=== PATIENT | male | born 1940 | race Caucasian/White ===

== ENCOUNTER 2020-05-30 23:44 | Emergency (ER) | payer MEDICARE, SELFPAY ==
[2020-05-30 23:49] VITALS: BP 125/64; PULSE 94; RESP 18; TEMP 36.6; O2SAT 97; BMI 21.9
--- NOTE | 2020-05-31 00:01 | ED_ITS ---
HPI - Altered Mental Status General Chief Complaint: Altered Mental Status Stated Complaint: dementia Time Seen by Provider: 05/31/20 00:01 Source: patient Mode of arrival: ambulatory Limitations: no limitations History of Present Illness HPI narrative: 79-year-old male came in from dementia unit for agitation evaluation. This is a 79-year-old male with history of dementia patient was discharged from [facility] today to a dementia unit at [facility], when patient arrived to the custodial patient refused to change his clothes and he was walking naked in agitated staff could not control him send him back to the emergency department. Given the fact patient was just discharged from [facility] for similar presentation will not work the patient up to rule out medical underlying etiolo gy. Will patient in the emergency department has been quite with no agitation and redirectable following simple commands. Of note patient is DNR/DNI. Review of Systems Review of Systems: All other systems are reviewed and are negative Constitutional: Reports as per HPI and Reports no additional constitutional complaints Eyes: Reports as per HPI and Reports no additional eye complaints Reports system reviewed and no additional complaints, except as documented Cardiovascular: Reports as per HPI and Reports no additional cardiovascular complaints Respiratory: Reports as per HPI and Reports no additional respiratory complaints Gastrointestinal: Reports as per HPI and Reports no additional gastrointestinal complaints Genitourinary: Reports no additional female genitourinary complaints Musculoskeletal: Reports no additional musculoskeletal complaints Skin/Breast: Reports system reviewed and no additional complaints, except as docu Psychiatric: Reports no additional psychiatric complaints Endocrine: Reports no additional endocrine complaints Hematologic/Lymphatic: Reports no additional hematologic/lymphatic complaints Allergic/Immunologic: Reports no additional allergic/immunologic complaints Reports system reviewed and no additional complaints, except as documented and Reports Abnormal speech present Physical Exam Vital Signs: Vital Signs: Last Vital Signs Temp 97.9 F 05/30/20 23:49 Pulse 94 05/30/20 23:49 Resp 18 05/30/20 23:49 BP 125/64 05/30/20 23:49 Pulse Ox 97 05/30/20 23:49 Body Mass Index 21.9 Vital signs have been reviewed as appeared to be correct. Blood pressure normal. Heart rate normal. Respiration rate normal. Temperature normal. Oxygen saturation normal. Appearance: Alert. No acute distress. Able to follow simple commands. Head: Normal external exam. Normocephalic. Atraumatic. No Swartz signs noted. No raccoon eyes noted Eyes: PERRLA. EOMI. Conjunctiva and sclera normal. Eyelids normal. ENT: TM's Normal. Pharynx normal. Uvula midline. Moist mucous membranes. No trismus noted. No drooling noted. No muffled voice noted. Neck: Normal inspection. Neck supple. FROM. No adenopathy. Thyroid Normal. No meningeal signs. No neck mass noted. CVS: Normal heart rate and rhythm. Heart sound normal. No murmurs noted. Pulses normal throughout. Respiratory: No respiratory distress. Painless inspiration. Breath sounds normal. No wheezes/rales/rhonchi noted. Chest nontender. No accessory muscle usage noted or decreased air movement noted. Abdomen: Soft and nontender. Bowel sounds normal in all 4 quadrants. No distention noted. No organomegaly noted. No visible injury noted. Back: No CVA tenderness. Full range of motion noted. Skin: Skin warm and dry. Normal skin color. Normal skin turgor. No rashes/lesions/lacerations noted. Extremities: No lower extremity edema. Extremities exhibit normal range of motion. Extremities nontender. Neuro: No motor deficit. No sensory deficit. Reflexes normal. Course Course Course Narrative: Assessment and plan. 79-year-old male came in after being agitated and walking naked at the dementia unit in the custodial. Patient emergency department showing no sign of acute distress, stable vital signs, physical exam not indicated for acute medical underlying cause. Patient was just discharged from [facility] assuming no acute medical condition was found. Reevaluation(s) Reevaluation #1: Patient is in bed quite no active agitation, follow commands, unchanged physical exam with stable vital signs will arrange for transportation back to the dementia unit. Time: 00:46 Discharge Plan Discharge Clinical Impression: Dementia Patient Disposition: er SNF Instructions: Dementia (ED) Additional Instructions: To follow-up with his primary doctor.
--- NOTE | 2020-05-31 00:34 | PC.NURSE ---
PT RESTING ON STRETCHER AT THIS TIME, HAS NOT ATTEMPTED TO GET OOB, HAS NOT DISPLAYED ANY AGITATION. REMAINS A/O X 1 (BASELINE)
== END 2020-05-31 02:00 | disposition skilled nursing facility (03) ==
PROVIDERS: Emergency Provider Emergency Medicine; PCP Family Medicine Geriatric Medicine
DX: F03.91 Unspecified dementia, unspecified severity, with behavioral disturbance (principal); Z66 Do not resuscitate
CPT/HCPCS: 99283

== ENCOUNTER 2021-04-06 16:19 | Emergency (ER) | payer MEDICARE, SELFPAY ==
[2021-04-06] VITALS (15 sets, daily range): BP systolic 123–150; BP diastolic 60–84; PULSE 76–100; RESP 15–21; TEMP 36.8–37.2; O2SAT 96–98; BMI 24.3
--- NOTE | ~2021-04-06 | CT_ITS ---
EXAMINATION: CT HEAD WITHOUT CONTRAST CLINICAL INFORMATION: Mental status change COMPARISON: None TECHNIQUE: Contiguous axial imaging was performed from the skull base to vertex without intravenous administration of contrast. Coronal and sagittal reformatted images are performed at CT scanner This CT examination was performed using dose optimization techniques as appropriate, variously including the following: *Automated exposure control *Adjustment of mA and/or kV according to patient size (this includes techniques or standardized protocols for targeted exams where dose is matched to indication/reason for exam; i.e. extremities or head) *Use of iterative reconstruction technique DLP: 745 mGy-cm FINDINGS: There is no evidence of acute intracranial hemorrhage or territorial infarction. No abnormal mass effect or midline shift is seen. [place]ore[place] to white matter differentiation is well preserved. No extra-axial fluid collections are identified. There is generalized global volume loss. There is moderate prominence of the ventricles and the sulci . There is mild hypodensity of the periventricular white matter due to chronic small vessel ischemic disease. There are vascular calcifications of the internal carotid arteries bilaterally. The osseous structures and soft tissues are normal. The mastoid air cells and visualized portions of the paranasal sinuses are well aerated. CT/CT head/brain wo con IMPRESSION: No acute intracranial pathology.
--- NOTE | ~2021-04-06 | CT_ITS ---
EXAMINATION: CT CHEST WITHOUT CONTRAST CLINICAL INFORMATION: Chest radiograph earlier today COMPARISON: Chest radiograph earlier today TECHNIQUE: Multidetector volumetric CT imaging of the chest was done. Axial MIP volume rendering provided. Sagittal and coronal reformatted images were obtained. This CT examination was performed using dose optimization techniques as appropriate, variously including the following: *Automated exposure control *Adjustment of mA and/or kV according to patient size (this includes techniques or standardized protocols for targeted exams where dose is matched to indication/reason for exam; i.e. extremities or head) *Use of iterative reconstruction technique DLP: 300 mGy-cm FINDINGS: LUNGS: Mild apical pleural-parenchymal scarring is present. Multiple pleural plaques are present on the right, some with calcifications. This was the finding seen on chest radiograph but the possibly represent granulomas. There is patchy consolidation present in the left lower lobe with some satellite patchy densities. Some right basilar atelectasis is seen. MEDIASTINUM: Chest min limited without IV contrast. No aortic aneurysm is seen. Extensive coronary calcification is present. No gross mediastinal or hilar lymphadenopathy is seen. PLEURA: There is no pleural effusion. Calcified right-sided pleural plaques as described above.. AXILLA: No lymphadenopathy. UPPER ABDOMEN: Unremarkable. OSSEOUS STRUCTURES: Unremarkable. CT/CT chest wo con IMPRESSION: Multiple pleural plaques on the right, many with calcification. Left lower lobe infiltrate consistent with pneumonia. No convincing evidence to suggest CHF. Fleischner guidelines were followed.
--- NOTE | ~2021-04-06 | XR_ITS ---
EXAMINATION: XR CHEST CLINICAL INFORMATION: Mental status change COMPARISON: None TECHNIQUE: Frontal view of the chest was obtained. FINDINGS: The heart and pulmonary vessels appear normal. Multifocal patchy densities are seen throughout the lungs. Unfortunately, no prior radiographs are available to assess acute nature laura CT of the knees. There may be calcified granulomas present. No pleural effusions. XR/XR chest 1V IMPRESSION: Normal sized heart. Multifocal opacities as described above, chronic versus acute.
--- NOTE | 2021-04-06 16:49 | ECG_ITS ---
Test Reason : AMS Blood Pressure : / mmHG Vent. Rate : 089 BPM Atrial Rate : 089 BPM P-R Int : 164 ms QRS Dur : 074 ms QT Int : 350 ms P-R-T Axes : 052 025 049 degrees QTc Int : 425 ms Poor data quality, interpretation may be adversely affected Normal sinus rhythm Normal ECG No previous ECGs available Referred By: Haresh Jones Electronically Signed By:Clark Jarvis
--- NOTE | 2021-04-06 16:52 | ED.GENADULT ---
HPI - General Adult General Chief complaint: General Medical <Haresh Jones MD - Last Filed: 04/06/21 19:36> Stated complaint: AGGRESSIVE PER STAFF @[facility] <Haresh Jones MD - Last Filed: 04/06/21 19:36> Time Seen by Provider: 04/06/21 16:40 <Haresh Jones MD - Last Filed: 04/06/21 19:36> Source: EMS and other (detention records) <Haresh Jones MD - Last Filed: 04/06/21 19:36> Mode of arrival: EMS <Haresh Jones MD - Last Filed: 04/06/21 19:36> Limitations: altered mental status (Patient with history of dementia) <Haresh Jones MD - Last Filed: 04/06/21 19:36> History of Present Illness HPI narrative: Patient presenting by EMS from locked memory unit after increasing aggressive behavior at the facility Apparently has been aggressive to staff in towards his friend in the facility. Unclear if he has a history of similar issues. Further history unavailable. It is uncertain if he has had any recent medical changes, medication changes, health status changes The patient himself denies complaints but is disoriented to person place and time <Haresh Jones MD - Last Filed: 04/06/21 19:36> Related Data Home medications: Home Medications Medication Instructions Recorded Confirmed buspirone 15 mg tablet 1 tab PO TID 04/06/21 04/06/21 finasteride 5 mg tablet 1 tab PO DAILY 04/06/21 04/06/21 melatonin 10 mg tablet 10 mg PO BEDTIME 04/06/21 04/06/21 memantine 10 mg tablet 1 tab PO BID 04/06/21 04/06/21 quetiapine 50 mg tablet 50 mg PO TID 04/06/21 04/06/21 tamsulosin 0.4 mg capsule 2 cap PO DAILY 04/06/21 04/06/21 Previous Rx's Medication Instructions Recorded doxycycline hyclate 100 mg capsule 100 mg PO BID 7 Days #14 cap 04/06/21 <Haresh Jones MD - Last Filed: 04/06/21 19:36> Allergies/adverse reactions: Allergies Allergy/AdvReac Type Severity Reaction Status Date / Time escitalopram [From Lexapro] Allergy Unknown Verified 04/06/21 16:49 <Haresh Jones MD - Last Filed: 04/06/21 19:36> Review of Systems Review of Systems: Unable to obtain <Haresh Jones MD - Last Filed: 04/06/21 19:36> [facility] Past Medical History Medical History: Medical History (Updated 04/06/21 @ 23:12 by Eduarda Dover MD) BPH (benign prostatic hyperplasia) Dementia <Haresh Jones MD - Last Filed: 04/06/21 19:36> Social History Social History: Social History Patient Tobacco Use Status: Tobacco use Unknown Advance Directives: Yes Advance Directives Information Provided: No Advance Directives on File: No <Haresh Jones MD - Last Filed: 04/06/21 19:36> Physical Exam Vital Signs: Vital Signs: Last Vital Signs Temp 97.9 F 04/07/21 02:37 Pulse 78 04/07/21 08:04 Resp 16 04/07/21 08:04 BP 143/69 H 04/07/21 08:04 Pulse Ox 97 04/07/21 08:04 BMI result Body Mass Index 24.3 <Haresh Jones MD - Last Filed: 04/06/21 19:36> Vital Signs: Last Vital Signs Temp 97.9 F 04/07/21 02:37 Pulse 78 04/07/21 08:04 Resp 16 04/07/21 08:04 BP 143/69 H 04/07/21 08:04 Pulse Ox 97 04/07/21 08:04 BMI result Body Mass Index 24.3 <Eduarda Dover MD - Last Filed: 04/06/21 23:24> Vital Signs: Last Vital Signs Temp 97.9 F 04/07/21 02:37 Pulse 78 04/07/21 08:04 Resp 16 04/07/21 08:04 BP 143/69 H 04/07/21 08:04 Pulse Ox 97 04/07/21 08:04 BMI result Body Mass Index 24.3 <Sabi Bob NP - Last Filed: 04/07/21 08:42> Const: Other: Patient is awake and alert in no acute distress <Haresh Jones MD - Last Filed: 04/06/21 19:36> HENMT: Other: Normocephalic atraumatic <Haresh Jones MD - Last Filed: 04/06/21 19:36> Eyes: Other: Pupils equal round reactive to light. Extraocular muscles intact <Haresh Jones MD - Last Filed: 04/06/21 19:36> Neck: Other: No meningismus <Haresh Jones MD - Last Filed: 04/06/21 19:36> Resp: Other: Clear and equal bilaterally without wheezes rales or rhonchi <Haresh Jones MD - Last Filed: 04/06/21 19:36> Cardio: Other: Regular rate and rhythm without murmurs rubs or gallops <Haresh Jones MD - Last Filed: 04/06/21 19:36> GI: Other: Soft nontender nondistended <Haresh Jones MD - Last Filed: 04/06/21 19:36> Skin: Other: Warm pink and dry without rash <Haresh Jones MD - Last Filed: 04/06/21 19:36> Neuro: Other: Disoriented to person place and time. Nonfocal neuro exam. Moves all 4 extremities without difficulty. No facial droop. <Haresh Jones MD - Last Filed: 04/06/21 19:36> Extrem: Other: No obvious extremity trauma <Haresh Jones MD - Last Filed: 04/06/21 19:36> Course Course Course Narrative: Patient with mental status change from [facility]. Differential diagnosis is large Advancing dementia Urinary tract infection Electrolyte abnormality Hepatic encephalopathy Renal failure Pneumonia Stroke Intracranial hemorrhage Treated with Haldol IV. 19:22. Patient is becoming more agitated despite the Haldol. Will treat with an additional dose of Haldol as well as Ativan IV and Zyprexa IM. [id number] restrained shows patient is wide awake without airway concerns. He is being redirected by nursing and security. 19:36 See critical care note <Haresh Jones MD - Last Filed: 04/06/21 19:36> Reevaluation(s) Reevaluation #1: 80-year-old male who was signed out to me, CT scan demonstrates pneumonia, patient is otherwise afebrile, not hypoxic, and arousable. He is otherwise received antibiotics here in the emergency room and then discharged with remaining course and instructions for this patient to be re-evaluated for any additional concerns regarding dementia. <Eduarda Dover MD - Last Filed: 04/06/21 23:24> Time: 23:13 <Eduarda Dover MD - Last Filed: 04/06/21 23:24> Reevaluation #2: 80-year-old male with a history of dementia with increasing aggressive behavior from a dementia unit. staff there is concerned they are unable to manage patient's behavior and they are requesting as psychiatric consultation while the patient is here in the emergency department. The patient did have some aggressive behavior yesterday requiring Haldol and Ativan. This morning he is calm and cooperative and took his morning medications. He is currently being treated for a pneumonia with oral doxycycline. Has no cough, shortness of breath. His vitals are stable. No fever or leukocytosis. On review of labs the patient does have a mild acute kidney injury. I do not have any labs to compare this to. This may be his baseline. He is tolerating p.o. he did receive some gentle hydration yesterday. Plan to repeat labs this morning. Will attempt to obtain previous labs for comparison <Sabi Bob NP - Last Filed: 04/07/21 08:42> Medical Decision Making Lab Data Result diagrams: : 04/06/21 17:09 04/06/21 20:11 <Haresh Jones MD - Last Filed: 04/06/21 19:36> Labs: Lab Results 04/06/21 04/06/21 04/06/21 Range/Units 17:09 17:09 17:09 WBC 5.3 (4.8-10.8) X10*3/uL RBC 3.19 L (4.60-5.80) X10*6/uL Hgb 10.0 L (14.0-18.0) g/dl Hct 30.9 L (42.0-52.0) % MCV 96.9 (80.0-98.0) fL MCH 31.3 (27.0-33.0) pg MCHC 32.4 (31.0-36.0) g/dl RDW 13.8 (11.0-16.0) % Plt Count 219 (160-400) X10*3/uL MPV 9.8 (9.4-12.4) fL Immature Gran % (Auto) 1.1 H (0.0-0.4) % Neut % (Auto) 61.1 (45-73) % Lymph % (Auto) 21.3 (20-40) % [place] % (Auto) 9.4 (2-11) % Eos % (Auto) 6.0 H (0-4) % Baso % (Auto) 1.1 (0-2) % Lymph # (Auto) 1.1 L (1.2-4.9) X10*3/uL [place] # (Auto) 0.5 (0.1-1.2) X10*3/uL Eos # (Auto) 0.3 (0.0-0.4) X10*3/uL Baso # (Auto) 0.1 (0.0-0.2) X10*3/uL Abs Immat Gran (auto) 0.06 H (0.00-0.03) X10*3/uL Absolute Neuts (auto) 3.2 (2.0-8.3) x10*3/uL Absolute Nucleated RBC 0.000 (0.0-0.012) X10*3/uL Nucleated RBC % (auto) 0.0 (0.0-0.2) /100WBC PT 11.6 (9.9-13.0) SEC INR 1.0 (0.9-1.1) Sodium (135-145) mmol/L Potassium (3.3-5.1) mmol/L Chloride (96-108) mmol/L Carbon Dioxide (22-29) mmol/L Anion Gap (12-20) BUN (9-16) mg/dL Creatinine (0.5-1.4) mg/dL Estim Creat Clear Calc Estimated GFR Random Glucose (60-115) mg/dL Lactic Acid (0.5-2.0) mmol/L Calcium (8.4-10.2) mg/dL Total Bilirubin (0.0-1.0) mg/dL AST (5-37) U/L ALT (0-40) U/L Alkaline Phosphatase (39-117) U/L Ammonia (13-55) umol/L Troponin I High Sens 3.6 (<3.5-35.0) ng/L B-Natriuretic Peptide (<100) pg/mL Total Protein (6.5-8.0) g/dL Albumin (3.5-5.0) g/dL TSH (0.32-4.0) uIU/mL Urine Color Urine Appearance Urine pH (5.0-8.0) Ur Specific [place] (1.005-1.025) Urine Protein (NEG-TRACE) MG/DL Urine Glucose (UA) (NEG) MG/DL Urine Ketones (NEG) MG/DL Urine Blood (NEG) Urine Nitrite (NEG) Ur Leukocyte Esterase (NEG) Urine RBC (0) /HPF Urine WBC (0-4) /HPF Ur Squamous Epith Cells /LPF Urine Bacteria /LPF Urine Opiates Screen (Not Detect) Urine Fentanyl Screen (Not Detect) Ur Barbiturates Screen (Not Detect) Ur Phencyclidine Scrn (Not Detect) Ur Amphetamines Screen (Not Detect) U Benzodiazepines Scrn (Not Detect) Urine Cocaine Screen (Not Detect) U Marijuana (THC) Screen (Not Detect) Ethyl Alcohol mg/dL COVID-19 (IRON) (Negative) COVID-19 Clin Com 04/06/21 04/06/21 04/06/21 Range/Units 17:09 17:09 17:09 WBC (4.8-10.8) X10*3/uL RBC (4.60-5.80) X10*6/uL Hgb (14.0-18.0) g/dl Hct (42.0-52.0) % MCV (80.0-98.0) fL MCH (27.0-33.0) pg MCHC (31.0-36.0) g/dl RDW (11.0-16.0) % Plt Count (160-400) X10*3/uL MPV (9.4-12.4) fL Immature Gran % (Auto) (0.0-0.4) % Neut % (Auto) (45-73) % Lymph % (Auto) (20-40) % [place] % (Auto) (2-11) % Eos % (Auto) (0-4) % Baso % (Auto) (0-2) % Lymph # (Auto) (1.2-4.9) X10*3/uL [place] # (Auto) (0.1-1.2) X10*3/uL Eos # (Auto) (0.0-0.4) X10*3/uL Baso # (Auto) (0.0-0.2) X10*3/uL Abs Immat Gran (auto) (0.00-0.03) X10*3/uL Absolute Neuts (auto) (2.0-8.3) x10*3/uL Absolute Nucleated RBC (0.0-0.012) X10*3/uL Nucleated RBC % (auto) (0.0-0.2) /100WBC PT (9.9-13.0) SEC INR (0.9-1.1) Sodium (135-145) mmol/L Potassium (3.3-5.1) mmol/L Chloride (96-108) mmol/L Carbon Dioxide (22-29) mmol/L Anion Gap (12-20) BUN (9-16) mg/dL Creatinine (0.5-1.4) mg/dL Estim Creat Clear Calc Estimated GFR Random Glucose (60-115) mg/dL Lactic Acid 1.0 (0.5-2.0) mmol/L Calcium (8.4-10.2) mg/dL Total Bilirubin (0.0-1.0) mg/dL AST (5-37) U/L ALT (0-40) U/L Alkaline Phosphatase (39-117) U/L Ammonia 28 (13-55) umol/L Troponin I High Sens (<3.5-35.0) ng/L B-Natriuretic Peptide 21 (<100) pg/mL Total Protein (6.5-8.0) g/dL Albumin (3.5-5.0) g/dL TSH (0.32-4.0) uIU/mL Urine Color Urine Appearance Urine pH (5.0-8.0) Ur Specific [place] (1.005-1.025) Urine Protein (NEG-TRACE) MG/DL Urine Glucose (UA) (NEG) MG/DL Urine Ketones (NEG) MG/DL Urine Blood (NEG) Urine Nitrite (NEG) Ur Leukocyte Esterase (NEG) Urine RBC (0) /HPF Urine WBC (0-4) /HPF Ur Squamous Epith Cells /LPF Urine Bacteria /LPF Urine Opiates Screen (Not Detect) Urine Fentanyl Screen (Not Detect) Ur Barbiturates Screen (Not Detect) Ur Phencyclidine Scrn (Not Detect) Ur Amphetamines Screen (Not Detect) U Benzodiazepines Scrn (Not Detect) Urine Cocaine Screen (Not Detect) U Marijuana (THC) Screen (Not Detect) Ethyl Alcohol mg/dL COVID-19 (IRON) (Negative) COVID-19 Clin Com 04/06/21 04/06/21 04/06/21 Range/Units 17:09 17:09 20:11 WBC (4.8-10.8) X10*3/uL RBC (4.60-5.80) X10*6/uL Hgb (14.0-18.0) g/dl Hct (42.0-52.0) % MCV (80.0-98.0) fL MCH (27.0-33.0) pg MCHC (31.0-36.0) g/dl RDW (11.0-16.0) % Plt Count (160-400) X10*3/uL MPV (9.4-12.4) fL Immature Gran % (Auto) (0.0-0.4) % Neut % (Auto) (45-73) % Lymph % (Auto) (20-40) % [place] % (Auto) (2-11) % Eos % (Auto) (0-4) % Baso % (Auto) (0-2) % Lymph # (Auto) (1.2-4.9) X10*3/uL [place] # (Auto) (0.1-1.2) X10*3/uL Eos # (Auto) (0.0-0.4) X10*3/uL Baso # (Auto) (0.0-0.2) X10*3/uL Abs Immat Gran (auto) (0.00-0.03) X10*3/uL Absolute Neuts (auto) (2.0-8.3) x10*3/uL Absolute Nucleated RBC (0.0-0.012) X10*3/uL Nucleated RBC % (auto) (0.0-0.2) /100WBC PT (9.9-13.0) SEC INR (0.9-1.1) Sodium 142 (135-145) mmol/L Potassium 4.5 (3.3-5.1) mmol/L Chloride 112 H (96-108) mmol/L Carbon Dioxide 24 (22-29) mmol/L Anion Gap 11 L (12-20) BUN 27 H (9-16) mg/dL Creatinine 1.80 H (0.5-1.4) mg/dL Estim Creat Clear Calc 30.6 Estimated GFR 36 Random Glucose 117 H (60-115) mg/dL Lactic Acid (0.5-2.0) mmol/L Calcium 8.7 (8.4-10.2) mg/dL Total Bilirubin 0.5 (0.0-1.0) mg/dL AST 43 H (5-37) U/L ALT 53 H (0-40) U/L Alkaline Phosphatase 116 (39-117) U/L Ammonia (13-55) umol/L Troponin I High Sens (<3.5-35.0) ng/L B-Natriuretic Peptide (<100) pg/mL Total Protein 7.0 (6.5-8.0) g/dL Albumin 3.8 (3.5-5.0) g/dL TSH 0.56 (0.32-4.0) uIU/mL Urine Color Urine Appearance Urine pH (5.0-8.0) Ur Specific [place] (1.005-1.025) Urine Protein (NEG-TRACE) MG/DL Urine Glucose (UA) (NEG) MG/DL Urine Ketones (NEG) MG/DL Urine Blood (NEG) Urine Nitrite (NEG) Ur Leukocyte Esterase (NEG) Urine RBC (0) /HPF Urine WBC (0-4) /HPF Ur Squamous Epith Cells /LPF Urine Bacteria /LPF Urine Opiates Screen (Not Detect) Urine Fentanyl Screen (Not Detect) Ur Barbiturates Screen (Not Detect) Ur Phencyclidine Scrn (Not Detect) Ur Amphetamines Screen (Not Detect) U Benzodiazepines Scrn (Not Detect) Urine Cocaine Screen (Not Detect) U Marijuana (THC) Screen (Not Detect) Ethyl Alcohol < 10 mg/dL COVID-19 (IRON) (Negative) COVID-19 Clin Com 04/06/21 04/06/21 04/06/21 Range/Units 20:11 20:17 20:17 WBC (4.8-10.8) X10*3/uL RBC (4.60-5.80) X10*6/uL Hgb (14.0-18.0) g/dl Hct (42.0-52.0) % MCV (80.0-98.0) fL MCH (27.0-33.0) pg MCHC (31.0-36.0) g/dl RDW (11.0-16.0) % Plt Count (160-400) X10*3/uL MPV (9.4-12.4) fL Immature Gran % (Auto) (0.0-0.4) % Neut % (Auto) (45-73) % Lymph % (Auto) (20-40) % [place] % (Auto) (2-11) % Eos % (Auto) (0-4) % Baso % (Auto) (0-2) % Lymph # (Auto) (1.2-4.9) X10*3/uL [place] # (Auto) (0.1-1.2) X10*3/uL Eos # (Auto) (0.0-0.4) X10*3/uL Baso # (Auto) (0.0-0.2) X10*3/uL Abs Immat Gran (auto) (0.00-0.03) X10*3/uL Absolute Neuts (auto) (2.0-8.3) x10*3/uL Absolute Nucleated RBC (0.0-0.012) X10*3/uL Nucleated RBC % (auto) (0.0-0.2) /100WBC PT (9.9-13.0) SEC INR (0.9-1.1) Sodium (135-145) mmol/L Potassium (3.3-5.1) mmol/L Chloride (96-108) mmol/L Carbon Dioxide (22-29) mmol/L Anion Gap (12-20) BUN (9-16) mg/dL Creatinine (0.5-1.4) mg/dL Estim Creat Clear Calc Estimated GFR Random Glucose (60-115) mg/dL Lactic Acid (0.5-2.0) mmol/L Calcium (8.4-10.2) mg/dL Total Bilirubin (0.0-1.0) mg/dL AST (5-37) U/L ALT (0-40) U/L Alkaline Phosphatase (39-117) U/L Ammonia (13-55) umol/L Troponin I High Sens (<3.5-35.0) ng/L B-Natriuretic Peptide (<100) pg/mL Total Protein (6.5-8.0) g/dL Albumin (3.5-5.0) g/dL TSH (0.32-4.0) uIU/mL Urine Color YELLOW Urine Appearance CLEAR Urine pH 6.5 (5.0-8.0) Ur Specific [place] 1.015 (1.005-1.025) Urine Protein NEG (NEG-TRACE) MG/DL Urine Glucose (UA) NEG (NEG) MG/DL Urine Ketones NEG (NEG) MG/DL Urine Blood TRACE (NEG) Urine Nitrite NEG (NEG) Ur Leukocyte Esterase NEG (NEG) Urine RBC 0-2 (0) /HPF Urine WBC 0-2 (0-4) /HPF Ur Squamous Epith Cells TRACE /LPF Urine Bacteria NONE /LPF Urine Opiates Screen Not Detected (Not Detect) Urine Fentanyl Screen Not Detected (Not Detect) Ur Barbiturates Screen Not Detected (Not Detect) Ur Phencyclidine Scrn Not Detected (Not Detect) Ur Amphetamines Screen Not Detected (Not Detect) U Benzodiazepines Scrn Not Detected (Not Detect) Urine Cocaine Screen Not Detected (Not Detect) U Marijuana (THC) Screen Not Detected (Not Detect) Ethyl Alcohol mg/dL COVID-19 (IRON) Negative (Negative) COVID-19 Clin Com See Note <Haresh Jones MD - Last Filed: 04/06/21 19:36> Lab Results 04/06/21 04/06/21 04/06/21 Range/Units 17:09 17:09 17:09 WBC 5.3 (4.8-10.8) X10*3/uL RBC 3.19 L (4.60-5.80) X10*6/uL Hgb 10.0 L (14.0-18.0) g/dl Hct 30.9 L (42.0-52.0) % MCV 96.9 (80.0-98.0) fL MCH 31.3 (27.0-33.0) pg MCHC 32.4 (31.0-36.0) g/dl RDW 13.8 (11.0-16.0) % Plt Count 219 (160-400) X10*3/uL MPV 9.8 (9.4-12.4) fL Immature Gran % (Auto) 1.1 H (0.0-0.4) % Neut % (Auto) 61.1 (45-73) % Lymph % (Auto) 21.3 (20-40) % [place] % (Auto) 9.4 (2-11) % Eos % (Auto) 6.0 H (0-4) % Baso % (Auto) 1.1 (0-2) % Lymph # (Auto) 1.1 L (1.2-4.9) X10*3/uL [place] # (Auto) 0.5 (0.1-1.2) X10*3/uL Eos # (Auto) 0.3 (0.0-0.4) X10*3/uL Baso # (Auto) 0.1 (0.0-0.2) X10*3/uL Abs Immat Gran (auto) 0.06 H (0.00-0.03) X10*3/uL Absolute Neuts (auto) 3.2 (2.0-8.3) x10*3/uL Absolute Nucleated RBC 0.000 (0.0-0.012) X10*3/uL Nucleated RBC % (auto) 0.0 (0.0-0.2) /100WBC PT 11.6 (9.9-13.0) SEC INR 1.0 (0.9-1.1) Sodium (135-145) mmol/L Potassium (3.3-5.1) mmol/L Chloride (96-108) mmol/L Carbon Dioxide (22-29) mmol/L Anion Gap (12-20) BUN (9-16) mg/dL Creatinine (0.5-1.4) mg/dL Estim Creat Clear Calc Estimated GFR Random Glucose (60-115) mg/dL Lactic Acid (0.5-2.0) mmol/L Calcium (8.4-10.2) mg/dL Total Bilirubin (0.0-1.0) mg/dL AST (5-37) U/L ALT (0-40) U/L Alkaline Phosphatase (39-117) U/L Ammonia (13-55) umol/L Troponin I High Sens 3.6 (<3.5-35.0) ng/L B-Natriuretic Peptide (<100) pg/mL Total Protein (6.5-8.0) g/dL Albumin (3.5-5.0) g/dL TSH (0.32-4.0) uIU/mL Urine Color Urine Appearance Urine pH (5.0-8.0) Ur Specific [place] (1.005-1.025) Urine Protein (NEG-TRACE) MG/DL Urine Glucose (UA) (NEG) MG/DL Urine Ketones (NEG) MG/DL Urine Blood (NEG) Urine Nitrite (NEG) Ur Leukocyte Esterase (NEG) Urine RBC (0) /HPF Urine WBC (0-4) /HPF Ur Squamous Epith Cells /LPF Urine Bacteria /LPF Urine Opiates Screen (Not Detect) Urine Fentanyl Screen (Not Detect) Ur Barbiturates Screen (Not Detect) Ur Phencyclidine Scrn (Not Detect) Ur Amphetamines Screen (Not Detect) U Benzodiazepines Scrn (Not Detect) Urine Cocaine Screen (Not Detect) U Marijuana (THC) Screen (Not Detect) Ethyl Alcohol mg/dL COVID-19 (IRON) (Negative) COVID-19 Clin Com 04/06/21 04/06/21 04/06/21 Range/Units 17:09 17:09 17:09 WBC (4.8-10.8) X10*3/uL RBC (4.60-5.80) X10*6/uL Hgb (14.0-18.0) g/dl Hct (42.0-52.0) % MCV (80.0-98.0) fL MCH (27.0-33.0) pg MCHC (31.0-36.0) g/dl RDW (11.0-16.0) % Plt Count (160-400) X10*3/uL MPV (9.4-12.4) fL Immature Gran % (Auto) (0.0-0.4) % Neut % (Auto) (45-73) % Lymph % (Auto) (20-40) % [place] % (Auto) (2-11) % Eos % (Auto) (0-4) % Baso % (Auto) (0-2) % Lymph # (Auto) (1.2-4.9) X10*3/uL [place] # (Auto) (0.1-1.2) X10*3/uL Eos # (Auto) (0.0-0.4) X10*3/uL Baso # (Auto) (0.0-0.2) X10*3/uL Abs Immat Gran (auto) (0.00-0.03) X10*3/uL Absolute Neuts (auto) (2.0-8.3) x10*3/uL Absolute Nucleated RBC (0.0-0.012) X10*3/uL Nucleated RBC % (auto) (0.0-0.2) /100WBC PT (9.9-13.0) SEC INR (0.9-1.1) Sodium (135-145) mmol/L Potassium (3.3-5.1) mmol/L Chloride (96-108) mmol/L Carbon Dioxide (22-29) mmol/L Anion Gap (12-20) BUN (9-16) mg/dL Creatinine (0.5-1.4) mg/dL Estim Creat Clear Calc Estimated GFR Random Glucose (60-115) mg/dL Lactic Acid 1.0 (0.5-2.0) mmol/L Calcium (8.4-10.2) mg/dL Total Bilirubin (0.0-1.0) mg/dL AST (5-37) U/L ALT (0-40) U/L Alkaline Phosphatase (39-117) U/L Ammonia 28 (13-55) umol/L Troponin I High Sens (<3.5-35.0) ng/L B-Natriuretic Peptide 21 (<100) pg/mL Total Protein (6.5-8.0) g/dL Albumin (3.5-5.0) g/dL TSH (0.32-4.0) uIU/mL Urine Color Urine Appearance Urine pH (5.0-8.0) Ur Specific [place] (1.005-1.025) Urine Protein (NEG-TRACE) MG/DL Urine Glucose (UA) (NEG) MG/DL Urine Ketones (NEG) MG/DL Urine Blood (NEG) Urine Nitrite (NEG) Ur Leukocyte Esterase (NEG) Urine RBC (0) /HPF Urine WBC (0-4) /HPF Ur Squamous Epith Cells /LPF Urine Bacteria /LPF Urine Opiates Screen (Not Detect) Urine Fentanyl Screen (Not Detect) Ur Barbiturates Screen (Not Detect) Ur Phencyclidine Scrn (Not Detect) Ur Amphetamines Screen (Not Detect) U Benzodiazepines Scrn (Not Detect) Urine Cocaine Screen (Not Detect) U Marijuana (THC) Screen (Not Detect) Ethyl Alcohol mg/dL COVID-19 (IRON) (Negative) COVID-19 Clin Com 04/06/21 04/06/21 04/06/21 Range/Units 17:09 17:09 20:11 WBC (4.8-10.8) X10*3/uL RBC (4.60-5.80) X10*6/uL Hgb (14.0-18.0) g/dl Hct (42.0-52.0) % MCV (80.0-98.0) fL MCH (27.0-33.0) pg MCHC (31.0-36.0) g/dl RDW (11.0-16.0) % Plt Count (160-400) X10*3/uL MPV (9.4-12.4) fL Immature Gran % (Auto) (0.0-0.4) % Neut % (Auto) (45-73) % Lymph % (Auto) (20-40) % [place] % (Auto) (2-11) % Eos % (Auto) (0-4) % Baso % (Auto) (0-2) % Lymph # (Auto) (1.2-4.9) X10*3/uL [place] # (Auto) (0.1-1.2) X10*3/uL Eos # (Auto) (0.0-0.4) X10*3/uL Baso # (Auto) (0.0-0.2) X10*3/uL Abs Immat Gran (auto) (0.00-0.03) X10*3/uL Absolute Neuts (auto) (2.0-8.3) x10*3/uL Absolute Nucleated RBC (0.0-0.012) X10*3/uL Nucleated RBC % (auto) (0.0-0.2) /100WBC PT (9.9-13.0) SEC INR (0.9-1.1) Sodium 142 (135-145) mmol/L Potassium 4.5 (3.3-5.1) mmol/L Chloride 112 H (96-108) mmol/L Carbon Dioxide 24 (22-29) mmol/L Anion Gap 11 L (12-20) BUN 27 H (9-16) mg/dL Creatinine 1.80 H (0.5-1.4) mg/dL Estim Creat Clear Calc 30.6 Estimated GFR 36 Random Glucose 117 H (60-115) mg/dL Lactic Acid (0.5-2.0) mmol/L Calcium 8.7 (8.4-10.2) mg/dL Total Bilirubin 0.5 (0.0-1.0) mg/dL AST 43 H (5-37) U/L ALT 53 H (0-40) U/L Alkaline Phosphatase 116 (39-117) U/L Ammonia (13-55) umol/L Troponin I High Sens (<3.5-35.0) ng/L B-Natriuretic Peptide (<100) pg/mL Total Protein 7.0 (6.5-8.0) g/dL Albumin 3.8 (3.5-5.0) g/dL TSH 0.56 (0.32-4.0) uIU/mL Urine Color Urine Appearance Urine pH (5.0-8.0) Ur Specific [place] (1.005-1.025) Urine Protein (NEG-TRACE) MG/DL Urine Glucose (UA) (NEG) MG/DL Urine Ketones (NEG) MG/DL Urine Blood (NEG) Urine Nitrite (NEG) Ur Leukocyte Esterase (NEG) Urine RBC (0) /HPF Urine WBC (0-4) /HPF Ur Squamous Epith Cells /LPF Urine Bacteria /LPF Urine Opiates Screen (Not Detect) Urine Fentanyl Screen (Not Detect) Ur Barbiturates Screen (Not Detect) Ur Phencyclidine Scrn (Not Detect) Ur Amphetamines Screen (Not Detect) U Benzodiazepines Scrn (Not Detect) Urine Cocaine Screen (Not Detect) U Marijuana (THC) Screen (Not Detect) Ethyl Alcohol < 10 mg/dL COVID-19 (IRON) (Negative) COVID-19 Clin Com 04/06/21 04/06/21 04/06/21 Range/Units 20:11 20:17 20:17 WBC (4.8-10.8) X10*3/uL RBC (4.60-5.80) X10*6/uL Hgb (14.0-18.0) g/dl Hct (42.0-52.0) % MCV (80.0-98.0) fL MCH (27.0-33.0) pg MCHC (31.0-36.0) g/dl RDW (11.0-16.0) % Plt Count (160-400) X10*3/uL MPV (9.4-12.4) fL Immature Gran % (Auto) (0.0-0.4) % Neut % (Auto) (45-73) % Lymph % (Auto) (20-40) % [place] % (Auto) (2-11) % Eos % (Auto) (0-4) % Baso % (Auto) (0-2) % Lymph # (Auto) (1.2-4.9) X10*3/uL [place] # (Auto) (0.1-1.2) X10*3/uL Eos # (Auto) (0.0-0.4) X10*3/uL Baso # (Auto) (0.0-0.2) X10*3/uL Abs Immat Gran (auto) (0.00-0.03) X10*3/uL Absolute Neuts (auto) (2.0-8.3) x10*3/uL Absolute Nucleated RBC (0.0-0.012) X10*3/uL Nucleated RBC % (auto) (0.0-0.2) /100WBC PT (9.9-13.0) SEC INR (0.9-1.1) Sodium (135-145) mmol/L Potassium (3.3-5.1) mmol/L Chloride (96-108) mmol/L Carbon Dioxide (22-29) mmol/L Anion Gap (12-20) BUN (9-16) mg/dL Creatinine (0.5-1.4) mg/dL Estim Creat Clear Calc Estimated GFR Random Glucose (60-115) mg/dL Lactic Acid (0.5-2.0) mmol/L Calcium (8.4-10.2) mg/dL Total Bilirubin (0.0-1.0) mg/dL AST (5-37) U/L ALT (0-40) U/L Alkaline Phosphatase (39-117) U/L Ammonia (13-55) umol/L Troponin I High Sens (<3.5-35.0) ng/L B-Natriuretic Peptide (<100) pg/mL Total Protein (6.5-8.0) g/dL Albumin (3.5-5.0) g/dL TSH (0.32-4.0) uIU/mL Urine Color YELLOW Urine Appearance CLEAR Urine pH 6.5 (5.0-8.0) Ur Specific [place] 1.015 (1.005-1.025) Urine Protein NEG (NEG-TRACE) MG/DL Urine Glucose (UA) NEG (NEG) MG/DL Urine Ketones NEG (NEG) MG/DL Urine Blood TRACE (NEG) Urine Nitrite NEG (NEG) Ur Leukocyte Esterase NEG (NEG) Urine RBC 0-2 (0) /HPF Urine WBC 0-2 (0-4) /HPF Ur Squamous Epith Cells TRACE /LPF Urine Bacteria NONE /LPF Urine Opiates Screen Not Detected (Not Detect) Urine Fentanyl Screen Not Detected (Not Detect) Ur Barbiturates Screen Not Detected (Not Detect) Ur Phencyclidine Scrn Not Detected (Not Detect) Ur Amphetamines Screen Not Detected (Not Detect) U Benzodiazepines Scrn Not Detected (Not Detect) Urine Cocaine Screen Not Detected (Not Detect) U Marijuana (THC) Screen Not Detected (Not Detect) Ethyl Alcohol mg/dL COVID-19 (IRON) Negative (Negative) COVID-19 Clin Com See Note <Eduarda Dover MD - Last Filed: 04/06/21 23:24> Lab Results 04/06/21 04/06/21 04/06/21 Range/Units 17:09 17:09 17:09 WBC 5.3 (4.8-10.8) X10*3/uL RBC 3.19 L (4.60-5.80) X10*6/uL Hgb 10.0 L (14.0-18.0) g/dl Hct 30.9 L (42.0-52.0) % MCV 96.9 (80.0-98.0) fL MCH 31.3 (27.0-33.0) pg MCHC 32.4 (31.0-36.0) g/dl RDW 13.8 (11.0-16.0) % Plt Count 219 (160-400) X10*3/uL MPV 9.8 (9.4-12.4) fL Immature Gran % (Auto) 1.1 H (0.0-0.4) % Neut % (Auto) 61.1 (45-73) % Lymph % (Auto) 21.3 (20-40) % [place] % (Auto) 9.4 (2-11) % Eos % (Auto) 6.0 H (0-4) % Baso % (Auto) 1.1 (0-2) % Lymph # (Auto) 1.1 L (1.2-4.9) X10*3/uL [place] # (Auto) 0.5 (0.1-1.2) X10*3/uL Eos # (Auto) 0.3 (0.0-0.4) X10*3/uL Baso # (Auto) 0.1 (0.0-0.2) X10*3/uL Abs Immat Gran (auto) 0.06 H (0.00-0.03) X10*3/uL Absolute Neuts (auto) 3.2 (2.0-8.3) x10*3/uL Absolute Nucleated RBC 0.000 (0.0-0.012) X10*3/uL Nucleated RBC % (auto) 0.0 (0.0-0.2) /100WBC PT 11.6 (9.9-13.0) SEC INR 1.0 (0.9-1.1) Sodium (135-145) mmol/L Potassium (3.3-5.1) mmol/L Chloride (96-108) mmol/L Carbon Dioxide (22-29) mmol/L Anion Gap (12-20) BUN (9-16) mg/dL Creatinine (0.5-1.4) mg/dL Estim Creat Clear Calc Estimated GFR Random Glucose (60-115) mg/dL Lactic Acid (0.5-2.0) mmol/L Calcium (8.4-10.2) mg/dL Total Bilirubin (0.0-1.0) mg/dL AST (5-37) U/L ALT (0-40) U/L Alkaline Phosphatase (39-117) U/L Ammonia (13-55) umol/L Troponin I High Sens 3.6 (<3.5-35.0) ng/L B-Natriuretic Peptide (<100) pg/mL Total Protein (6.5-8.0) g/dL Albumin (3.5-5.0) g/dL TSH (0.32-4.0) uIU/mL Urine Color Urine Appearance Urine pH (5.0-8.0) Ur Specific [place] (1.005-1.025) Urine Protein (NEG-TRACE) MG/DL Urine Glucose (UA) (NEG) MG/DL Urine Ketones (NEG) MG/DL Urine Blood (NEG) Urine Nitrite (NEG) Ur Leukocyte Esterase (NEG) Urine RBC (0) /HPF Urine WBC (0-4) /HPF Ur Squamous Epith Cells /LPF Urine Bacteria /LPF Urine Opiates Screen (Not Detect) Urine Fentanyl Screen (Not Detect) Ur Barbiturates Screen (Not Detect) Ur Phencyclidine Scrn (Not Detect) Ur Amphetamines Screen (Not Detect) U Benzodiazepines Scrn (Not Detect) Urine Cocaine Screen (Not Detect) U Marijuana (THC) Screen (Not Detect) Ethyl Alcohol mg/dL COVID-19 (IRON) (Negative) COVID-19 Clin Com 04/06/21 04/06/21 04/06/21 Range/Units 17:09 17:09 17:09 WBC (4.8-10.8) X10*3/uL RBC (4.60-5.80) X10*6/uL Hgb (14.0-18.0) g/dl Hct (42.0-52.0) % MCV (80.0-98.0) fL MCH (27.0-33.0) pg MCHC (31.0-36.0) g/dl RDW (11.0-16.0) % Plt Count (160-400) X10*3/uL MPV (9.4-12.4) fL Immature Gran % (Auto) (0.0-0.4) % Neut % (Auto) (45-73) % Lymph % (Auto) (20-40) % [place] % (Auto) (2-11) % Eos % (Auto) (0-4) % Baso % (Auto) (0-2) % Lymph # (Auto) (1.2-4.9) X10*3/uL [place] # (Auto) (0.1-1.2) X10*3/uL Eos # (Auto) (0.0-0.4) X10*3/uL Baso # (Auto) (0.0-0.2) X10*3/uL Abs Immat Gran (auto) (0.00-0.03) X10*3/uL Absolute Neuts (auto) (2.0-8.3) x10*3/uL Absolute Nucleated RBC (0.0-0.012) X10*3/uL Nucleated RBC % (auto) (0.0-0.2) /100WBC PT (9.9-13.0) SEC INR (0.9-1.1) Sodium (135-145) mmol/L Potassium (3.3-5.1) mmol/L Chloride (96-108) mmol/L Carbon Dioxide (22-29) mmol/L Anion Gap (12-20) BUN (9-16) mg/dL Creatinine (0.5-1.4) mg/dL Estim Creat Clear Calc Estimated GFR Random Glucose (60-115) mg/dL Lactic Acid 1.0 (0.5-2.0) mmol/L Calcium (8.4-10.2) mg/dL Total Bilirubin (0.0-1.0) mg/dL AST (5-37) U/L ALT (0-40) U/L Alkaline Phosphatase (39-117) U/L Ammonia 28 (13-55) umol/L Troponin I High Sens (<3.5-35.0) ng/L B-Natriuretic Peptide 21 (<100) pg/mL Total Protein (6.5-8.0) g/dL Albumin (3.5-5.0) g/dL TSH (0.32-4.0) uIU/mL Urine Color Urine Appearance Urine pH (5.0-8.0) Ur Specific [place] (1.005-1.025) Urine Protein (NEG-TRACE) MG/DL Urine Glucose (UA) (NEG) MG/DL Urine Ketones (NEG) MG/DL Urine Blood (NEG) Urine Nitrite (NEG) Ur Leukocyte Esterase (NEG) Urine RBC (0) /HPF Urine WBC (0-4) /HPF Ur Squamous Epith Cells /LPF Urine Bacteria /LPF Urine Opiates Screen (Not Detect) Urine Fentanyl Screen (Not Detect) Ur Barbiturates Screen (Not Detect) Ur Phencyclidine Scrn (Not Detect) Ur Amphetamines Screen (Not Detect) U Benzodiazepines Scrn (Not Detect) Urine Cocaine Screen (Not Detect) U Marijuana (THC) Screen (Not Detect) Ethyl Alcohol mg/dL COVID-19 (IRON) (Negative) COVID-19 Clin Com 04/06/21 04/06/21 04/06/21 Range/Units 17:09 17:09 20:11 WBC (4.8-10.8) X10*3/uL RBC (4.60-5.80) X10*6/uL Hgb (14.0-18.0) g/dl Hct (42.0-52.0) % MCV (80.0-98.0) fL MCH (27.0-33.0) pg MCHC (31.0-36.0) g/dl RDW (11.0-16.0) % Plt Count (160-400) X10*3/uL MPV (9.4-12.4) fL Immature Gran % (Auto) (0.0-0.4) % Neut % (Auto) (45-73) % Lymph % (Auto) (20-40) % [place] % (Auto) (2-11) % Eos % (Auto) (0-4) % Baso % (Auto) (0-2) % Lymph # (Auto) (1.2-4.9) X10*3/uL [place] # (Auto) (0.1-1.2) X10*3/uL Eos # (Auto) (0.0-0.4) X10*3/uL Baso # (Auto) (0.0-0.2) X10*3/uL Abs Immat Gran (auto) (0.00-0.03) X10*3/uL Absolute Neuts (auto) (2.0-8.3) x10*3/uL Absolute Nucleated RBC (0.0-0.012) X10*3/uL Nucleated RBC % (auto) (0.0-0.2) /100WBC PT (9.9-13.0) SEC INR (0.9-1.1) Sodium 142 (135-145) mmol/L Potassium 4.5 (3.3-5.1) mmol/L Chloride 112 H (96-108) mmol/L Carbon Dioxide 24 (22-29) mmol/L Anion Gap 11 L (12-20) BUN 27 H (9-16) mg/dL Creatinine 1.80 H (0.5-1.4) mg/dL Estim Creat Clear Calc 30.6 Estimated GFR 36 Random Glucose 117 H (60-115) mg/dL Lactic Acid (0.5-2.0) mmol/L Calcium 8.7 (8.4-10.2) mg/dL Total Bilirubin 0.5 (0.0-1.0) mg/dL AST 43 H (5-37) U/L ALT 53 H (0-40) U/L Alkaline Phosphatase 116 (39-117) U/L Ammonia (13-55) umol/L Troponin I High Sens (<3.5-35.0) ng/L B-Natriuretic Peptide (<100) pg/mL Total Protein 7.0 (6.5-8.0) g/dL Albumin 3.8 (3.5-5.0) g/dL TSH 0.56 (0.32-4.0) uIU/mL Urine Color Urine Appearance Urine pH (5.0-8.0) Ur Specific [place] (1.005-1.025) Urine Protein (NEG-TRACE) MG/DL Urine Glucose (UA) (NEG) MG/DL Urine Ketones (NEG) MG/DL Urine Blood (NEG) Urine Nitrite (NEG) Ur Leukocyte Esterase (NEG) Urine RBC (0) /HPF Urine WBC (0-4) /HPF Ur Squamous Epith Cells /LPF Urine Bacteria /LPF Urine Opiates Screen (Not Detect) Urine Fentanyl Screen (Not Detect) Ur Barbiturates Screen (Not Detect) Ur Phencyclidine Scrn (Not Detect) Ur Amphetamines Screen (Not Detect) U Benzodiazepines Scrn (Not Detect) Urine Cocaine Screen (Not Detect) U Marijuana (THC) Screen (Not Detect) Ethyl Alcohol < 10 mg/dL COVID-19 (IRON) (Negative) COVID-19 Clin Com 04/06/21 04/06/21 04/06/21 Range/Units 20:11 20:17 20:17 WBC (4.8-10.8) X10*3/uL RBC (4.60-5.80) X10*6/uL Hgb (14.0-18.0) g/dl Hct (42.0-52.0) % MCV (80.0-98.0) fL MCH (27.0-33.0) pg MCHC (31.0-36.0) g/dl RDW (11.0-16.0) % Plt Count (160-400) X10*3/uL MPV (9.4-12.4) fL Immature Gran % (Auto) (0.0-0.4) % Neut % (Auto) (45-73) % Lymph % (Auto) (20-40) % [place] % (Auto) (2-11) % Eos % (Auto) (0-4) % Baso % (Auto) (0-2) % Lymph # (Auto) (1.2-4.9) X10*3/uL [place] # (Auto) (0.1-1.2) X10*3/uL Eos # (Auto) (0.0-0.4) X10*3/uL Baso # (Auto) (0.0-0.2) X10*3/uL Abs Immat Gran (auto) (0.00-0.03) X10*3/uL Absolute Neuts (auto) (2.0-8.3) x10*3/uL Absolute Nucleated RBC (0.0-0.012) X10*3/uL Nucleated RBC % (auto) (0.0-0.2) /100WBC PT (9.9-13.0) SEC INR (0.9-1.1) Sodium (135-145) mmol/L Potassium (3.3-5.1) mmol/L Chloride (96-108) mmol/L Carbon Dioxide (22-29) mmol/L Anion Gap (12-20) BUN (9-16) mg/dL Creatinine (0.5-1.4) mg/dL Estim Creat Clear Calc Estimated GFR Random Glucose (60-115) mg/dL Lactic Acid (0.5-2.0) mmol/L Calcium (8.4-10.2) mg/dL Total Bilirubin (0.0-1.0) mg/dL AST (5-37) U/L ALT (0-40) U/L Alkaline Phosphatase (39-117) U/L Ammonia (13-55) umol/L Troponin I High Sens (<3.5-35.0) ng/L B-Natriuretic Peptide (<100) pg/mL Total Protein (6.5-8.0) g/dL Albumin (3.5-5.0) g/dL TSH (0.32-4.0) uIU/mL Urine Color YELLOW Urine Appearance CLEAR Urine pH 6.5 (5.0-8.0) Ur Specific [place] 1.015 (1.005-1.025) Urine Protein NEG (NEG-TRACE) MG/DL Urine Glucose (UA) NEG (NEG) MG/DL Urine Ketones NEG (NEG) MG/DL Urine Blood TRACE (NEG) Urine Nitrite NEG (NEG) Ur Leukocyte Esterase NEG (NEG) Urine RBC 0-2 (0) /HPF Urine WBC 0-2 (0-4) /HPF Ur Squamous Epith Cells TRACE /LPF Urine Bacteria NONE /LPF Urine Opiates Screen Not Detected (Not Detect) Urine Fentanyl Screen Not Detected (Not Detect) Ur Barbiturates Screen Not Detected (Not Detect) Ur Phencyclidine Scrn Not Detected (Not Detect) Ur Amphetamines Screen Not Detected (Not Detect) U Benzodiazepines Scrn Not Detected (Not Detect) Urine Cocaine Screen Not Detected (Not Detect) U Marijuana (THC) Screen Not Detected (Not Detect) Ethyl Alcohol mg/dL COVID-19 (IRON) Negative (Negative) COVID-19 Clin Com See Note <Sabi Bob NP - Last Filed: 04/07/21 08:42> Critical Care Time Critical Care Time Critical Care Time: Yes <Haresh Jones MD - Last Filed: 04/06/21 19:36> Total Critical Care Time: 75 <Haresh Jones MD - Last Filed: 04/06/21 19:36> Attestation: Patient still aggressive after multiple doses of Haldol, Ativan, Zyprexa. Will need now IM dosages he has pulled out his IV. We will attempt to avoid physical restraints however Critical care time is outside of separately billable procedure time <Harseh Jones MD - Last Filed: 04/06/21 19:36> Discharge Plan Discharge Clinical Impression: Pneumonia, Dementia <Haresh Jones MD - Last Filed: 04/06/21 19:36> Patient Disposition: Xfer Other <Haresh Jones MD - Last Filed: 04/06/21 19:36> Instructions: Dementia (ED), Pneumonia (ED) <Haresh Jones MD - Last Filed: 04/06/21 19:36> Additional Instructions: 1. Resume all home medications. 2. Patient should complete the entire course of antibiotics as prescribed. 3. Patient will need to be re-evaluated for possible medication changes for dementia. Return to the ER for worsening symptoms. <Haresh Jones MD - Last Filed: 04/06/21 19:36> Prescriptions: New doxycycline hyclate 100 mg capsule 100 mg PO BID 7 Days Qty: 14 0RF No Action tamsulosin 0.4 mg capsule 2 cap PO DAILY 0RF finasteride 5 mg tablet 1 tab PO DAILY 0RF buspirone 15 mg tablet 1 tab PO TID 0RF memantine 10 mg tablet 1 tab PO BID 0RF quetiapine 50 mg tablet 50 mg PO TID 0RF melatonin 10 mg Tablet 10 mg PO BEDTIME 0RF <Haresh Jones MD - Last Filed: 04/06/21 19:36>
[2021-04-06 17:14] LABS: MANUAL DIFF FLAG NO
[2021-04-06 17:17] LABS: Basophils Absolute Auto 0.1 X10*3/uL (0.0-0.2); Basophils Percent Auto 1.1 % (0-2); Eosinophils Absolute Auto 0.3 X10*3/uL (0.0-0.4); Hematocrit 30.9 % (42.0-52.0); Imm Gran Abs Auto 0.06 X10*3/uL (0.00-0.03); Imm Gran Pct Auto 1.1 % (0.0-0.4); Lymphocytes Absolute Auto 1.1 X10*3/uL (1.2-4.9); Lymphocytes Percent Auto 21.3 % (20-40); Mean Corpuscular HGB Conc 32.4 g/dl (31.0-36.0); Mean Corpuscular Hemoglobin 31.3 pg (27.0-33.0); Mean Corpuscular Volume 96.9 fL (80.0-98.0); Mean Platelet Volume 9.8 fL (9.4-12.4); Monocytes Absolute Auto 0.5 X10*3/uL (0.1-1.2); Monocytes Percent Auto 9.4 % (2-11); Neutrophils Absolute Auto 3.2 x10*3/uL (2.0-8.3); Neutrophils Percent Auto 61.1 % (45-73); Platelet Count 219 X10*3/uL (160-400); Red Blood Count 3.19 X10*6/uL (4.60-5.80); Red Cell Distribution Width 13.8 % (11.0-16.0); White Blood Count 5.3 X10*3/uL (4.8-10.8)
[2021-04-06 17:22] LABS: Prothrombin Time 11.6 SEC (9.9-13.0)
[2021-04-06] MEDS: 0.9 % Sodium Chloride 500 ML IV (17:22)
[2021-04-06] MEDS: Haloperidol Lactate 5 MG/ML VIAL 2 MG IVPUSH (17:22)
[2021-04-06 17:25] LABS: Ammonia 28 umol/L (13-55)
[2021-04-06 17:35] LABS: B Type Natriuretic Peptide 21 pg/mL (<100); Ethanol < 10 mg/dL
[2021-04-06 17:37] LABS: Troponin-I High Sensitivity 3.6 ng/L (<3.5-35.0)
[2021-04-06 17:51] LABS: TSH reflex Free T4 0.56 uIU/mL (0.32-4.0)
--- NOTE | 2021-04-06 18:15 | PC.NURSE ---
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
[2021-04-06] MEDS: LORazepam 2 MG/ML VIAL IM (19:41)
[2021-04-06] MEDS: Haloperidol Lactate 5 MG/ML VIAL IM (19:41)
--- NOTE | 2021-04-06 19:43 | PC.NURSE ---
This RN attempting to medicate with ativan and haldol IV per orders but prior to admin, pt removed PIV access. Dr Jones aware, ordered haldol 5 and ativan 2 IM for pt. Pt medicated per orders.
--- NOTE | 2021-04-06 20:25 | PC.NURSE ---
Per Dr Jones, do not medicate with zyprexa at this time. Can medicate with zyprexa if haldol and ativan is unsuccessful
[2021-04-06 20:27] LABS: Appearance Urine CLEAR; Color Urine YELLOW; Glucose Urine UA NEG (NEG); Leukocyte Esterase Urine NEG (NEG); Nitrite Urine NEG (NEG); PH 6.5 (5.0-8.0); Specific Gravity - Urine 1.015 (1.005-1.025); UACC Culture Trigger NO; Urine Blood TRACE (NEG); Urine Ketones NEG (NEG); Urine Protein NEG (NEG-TRACE)
[2021-04-06 20:33] LABS: COVID-19 Test Negative (Negative)
[2021-04-06 20:35] LABS: Alanine Aminotransferase 53 U/L (0-40); Albumin Level 3.8 g/dL (3.5-5.0); Alkaline Phosphatase 116 U/L (39-117); Anion Gap 11 (12-20); Aspartate Amino Transferase 43 U/L (5-37); Bilirubin Total 0.5 mg/dL (0.0-1.0); Blood Urea Nitrogen 27 mg/dL (9-16); Calcium 8.7 mg/dL (8.4-10.2); Carbon Dioxide 24 mmol/L (22-29); Chloride 112 mmol/L (96-108); Creatinine Clr Calc Pharmacy 30.6; Estimated Glomerular Filt Rate 36; Glucose Random 117 mg/dL (60-115); Potassium 4.5 mmol/L (3.3-5.1); Sodium 142 mmol/L (135-145)
[2021-04-06 20:38] LABS: Amphetamine Screen Urine Not Detected (Not Detect); Barbiturates, Urine Not Detected (Not Detect); Benzodiazepines Screen Urine Not Detected (Not Detect); Cannabinoid Screen Urine Not Detected (Not Detect); Cocaine Screen Urine Not Detected (Not Detect); Fentanyl, urine Not Detected (Not Detect); Opiate Screen Urine Not Detected (Not Detect); Phencyclidine Screen Urine Not Detected (Not Detect)
--- NOTE | 2021-04-06 20:49 | PC.NURSE ---
Pt returned from CT. Head CT and CXR obtained without incidence. Pt asleep in between care, calm and cooperative. Pt VSS on RA. Stretcher low locked, rails raised, red fall prevention socks on, red fall alert wristband on, red fall star sign posted.
[2021-04-06 20:59] LABS: RBC Urine 0-2 /HPF (0); Squamous Epithelial Cell Urine TRACE /LPF; WBC Urine 0-2 /HPF (0-4)
--- NOTE | 2021-04-06 23:21 | PC.NURSE ---
Per ER MD, pt is able to be discharged if facility is accepting. This RN contacting the facility who was told by a woman who answered the phone that there is no nurse in the memory unit overnight. This RN contacting the alterations manager nurse Kartik ([phone]) who did not answer the phone. This RN contacting the director, Natalia ([phone]) who stated that pt is a danger to himself, other residents and visitors. Per Natalia, pt has been terrorizing the unit. Per Natalia, the facility is not accepting of pt without a reilly pysch eval including a possible medication adjustment. and Primary RN aware.
[2021-04-07 00:31] VITALS: BP 131/73; PULSE 79; RESP 16; O2SAT 96
[2021-04-07] MEDS: Doxycycline Hyclate 100 MG in 0.9 % Sodium Chloride 250 ML 166.67 MG IV (00:56)
[2021-04-07 02:37] VITALS: BP 148/83; PULSE 73; RESP 16; TEMP 36.6; O2SAT 96
[2021-04-07 03:18] VITALS: BP 139/69; PULSE 76; RESP 15; O2SAT 98
--- NOTE | 2021-04-07 03:19 | PC.NURSE ---
Pt used urinal with assistance, voided 200cc. Pt without need for incontinence care.
[2021-04-07 05:56] VITALS: BP 135/76; PULSE 79; RESP 17; O2SAT 98
--- NOTE | 2021-04-07 06:56 | PC.NURSE ---
Report given to HARMONY Tillman.
[2021-04-07] MEDS: busPIRone HCl 5 MG TABLET 15 MG PO ×3 (07:56→22:10)
[2021-04-07] MEDS: Finasteride 5 MG TABLET PO (07:57)
[2021-04-07] MEDS: Memantine HCl 10 MG TABLET PO ×2 (07:57→20:25)
[2021-04-07] MEDS: QUEtiapine Fumarate 50 MG TABLET PO ×3 (07:57→20:25)
[2021-04-07] MEDS: Tamsulosin HCL 0.4 MG CAPSULE 0.8 MG PO (07:57)
[2021-04-07 08:04] VITALS: BP 143/69; PULSE 78; RESP 16; O2SAT 97
[2021-04-07 09:42] LABS: Anion Gap 8 (12-20); Blood Urea Nitrogen 21 mg/dL (9-16); Calcium 8.7 mg/dL (8.4-10.2); Carbon Dioxide 27 mmol/L (22-29); Chloride 111 mmol/L (96-108); Creatinine Clr Calc Pharmacy 36.4; Estimated Glomerular Filt Rate 45; Glucose Random 94 mg/dL (60-115); Potassium 4.8 mmol/L (3.3-5.1); Sodium 141 mmol/L (135-145)
[2021-04-07 16:28] VITALS: BP 143/74; PULSE 91; RESP 16; TEMP 36.7; O2SAT 99
[2021-04-07] MEDS: Melatonin 3 MG TABLET 9 MG PO (20:25)
--- NOTE | 2021-04-07 20:48 | ED.GENADULT ---
HPI - General Adult General Chief complaint: General Medical Stated complaint: AGGRESSIVE PER STAFF @[facility] Time Seen by Provider: 04/06/21 16:40 Source: EMS and other (shelter records) Mode of arrival: EMS Limitations: altered mental status (Patient with history of dementia) Related Data Home Medications Medication Instructions Recorded Confirmed buspirone 15 mg tablet 1 tab PO TID 04/06/21 04/06/21 finasteride 5 mg tablet 1 tab PO DAILY 04/06/21 04/06/21 melatonin 10 mg tablet 10 mg PO BEDTIME 04/06/21 04/06/21 memantine 10 mg tablet 1 tab PO BID 04/06/21 04/06/21 quetiapine 50 mg tablet 50 mg PO TID 04/06/21 04/06/21 tamsulosin 0.4 mg capsule 2 cap PO DAILY 04/06/21 04/06/21 Previous Rx's Medication Instructions Recorded doxycycline hyclate 100 mg capsule 100 mg PO BID 7 Days #14 cap 04/06/21 Allergies Allergy/AdvReac Type Severity Reaction Status Date / Time escitalopram [From Lexapro] Allergy Unknown Verified 04/06/21 16:49 [facility] Past Medical History Medical History (Updated 04/06/21 @ 23:12 by Eduarda Dover MD) BPH (benign prostatic hyperplasia) Dementia Social History Social History Patient Tobacco Use Status: Tobacco use Unknown Advance Directives: Yes Advance Directives Information Provided: No Advance Directives on File: No Physical Exam Vital Signs: Vital Signs: Last Vital Signs Temp 98.1 F 04/07/21 16:28 Pulse 91 04/07/21 16:28 Resp 16 04/07/21 16:28 BP 143/74 H 04/07/21 16:28 Pulse Ox 99 04/07/21 16:28 BMI result Body Mass Index 24.3 Course Course Course Narrative: 20:49. Microbiology reveals blood cultures are positive for Gram-positive cocci. Patient, however, has a normal white count and is afebrile and no obvious infectious symptoms. This is much more consistent with contaminant. Continue with current management plan Medical Decision Making Lab Data Result diagrams: 04/06/21 17:09 04/07/21 09:19 Labs: Lab Results 02/09/1804/06/21 04/06/21 Range/Units 17:09 17:09 17:09 WBC 5.3 (4.8-10.8) X10*3/uL RBC 3.19 L (4.60-5.80) X10*6/uL Hgb 10.0 L (14.0-18.0) g/dl Hct 30.9 L (42.0-52.0) % MCV 96.9 (80.0-98.0) fL MCH 31.3 (27.0-33.0) pg MCHC 32.4 (31.0-36.0) g/dl RDW 13.8 (11.0-16.0) % Plt Count 219 (160-400) X10*3/uL MPV 9.8 (9.4-12.4) fL Immature Gran % (Auto) 1.1 H (0.0-0.4) % Neut % (Auto) 61.1 (45-73) % Lymph % (Auto) 21.3 (20-40) % Douglas % (Auto) 9.4 (2-11) % Eos % (Auto) 6.0 H (0-4) % Baso % (Auto) 1.1 (0-2) % Lymph # (Auto) 1.1 L (1.2-4.9) X10*3/uL Douglas # (Auto) 0.5 (0.1-1.2) X10*3/uL Eos # (Auto) 0.3 (0.0-0.4) X10*3/uL Baso # (Auto) 0.1 (0.0-0.2) X10*3/uL Abs Immat Gran (auto) 0.06 H (0.00-0.03) X10*3/uL Absolute Neuts (auto) 3.2 (2.0-8.3) x10*3/uL Absolute Nucleated RBC 0.000 (0.0-0.012) X10*3/uL Nucleated RBC % (auto) 0.0 (0.0-0.2) /100WBC PT 11.6 (9.9-13.0) SEC INR 1.0 (0.9-1.1) Sodium (135-145) mmol/L Potassium (3.3-5.1) mmol/L Chloride (96-108) mmol/L Carbon Dioxide (22-29) mmol/L Anion Gap (12-20) BUN (9-16) mg/dL Creatinine (0.5-1.4) mg/dL Estim Creat Clear Calc Estimated GFR Random Glucose (60-115) mg/dL Lactic Acid (0.5-2.0) mmol/L Calcium (8.4-10.2) mg/dL Total Bilirubin (0.0-1.0) mg/dL AST (5-37) U/L ALT (0-40) U/L Alkaline Phosphatase (39-117) U/L Ammonia (13-55) umol/L Troponin I High Sens 3.6 (<3.5-35.0) ng/L B-Natriuretic Peptide (<100) pg/mL Total Protein (6.5-8.0) g/dL Albumin (3.5-5.0) g/dL TSH (0.32-4.0) uIU/mL Urine Color Urine Appearance Urine pH (5.0-8.0) Ur Specific [place] (1.005-1.025) Urine Protein (NEG-TRACE) MG/DL Urine Glucose (UA) (NEG) MG/DL Urine Ketones (NEG) MG/DL Urine Blood (NEG) Urine Nitrite (NEG) Ur Leukocyte Esterase (NEG) Urine RBC (0) /HPF Urine WBC (0-4) /HPF Ur Squamous Epith Cells /LPF Urine Bacteria /LPF Urine Opiates Screen (Not Detect) Urine Fentanyl Screen (Not Detect) Ur Barbiturates Screen (Not Detect) Ur Phencyclidine Scrn (Not Detect) Ur Amphetamines Screen (Not Detect) U Benzodiazepines Scrn (Not Detect) Urine Cocaine Screen (Not Detect) U Marijuana (THC) Screen (Not Detect) Ethyl Alcohol mg/dL COVID-19 (IRON) (Negative) COVID-19 Clin Com 04/06/21 04/06/21 04/06/21 Range/Units 17:09 17:09 17:09 WBC (4.8-10.8) X10*3/uL RBC (4.60-5.80) X10*6/uL Hgb (14.0-18.0) g/dl Hct (42.0-52.0) % MCV (80.0-98.0) fL MCH (27.0-33.0) pg MCHC (31.0-36.0) g/dl RDW (11.0-16.0) % Plt Count (160-400) X10*3/uL MPV (9.4-12.4) fL Immature Gran % (Auto) (0.0-0.4) % Neut % (Auto) (45-73) % Lymph % (Auto) (20-40) % Douglas % (Auto) (2-11) % Eos % (Auto) (0-4) % Baso % (Auto) (0-2) % Lymph # (Auto) (1.2-4.9) X10*3/uL [place] # (Auto) (0.1-1.2) X10*3/uL Eos # (Auto) (0.0-0.4) X10*3/uL Baso # (Auto) (0.0-0.2) X10*3/uL Abs Immat Gran (auto) (0.00-0.03) X10*3/uL Absolute Neuts (auto) (2.0-8.3) x10*3/uL Absolute Nucleated RBC (0.0-0.012) X10*3/uL Nucleated RBC % (auto) (0.0-0.2) /100WBC PT (9.9-13.0) SEC INR (0.9-1.1) Sodium (135-145) mmol/L Potassium (3.3-5.1) mmol/L Chloride (96-108) mmol/L Carbon Dioxide (22-29) mmol/L Anion Gap (12-20) BUN (9-16) mg/dL Creatinine (0.5-1.4) mg/dL Estim Creat Clear Calc Estimated GFR Random Glucose (60-115) mg/dL Lactic Acid 1.0 (0.5-2.0) mmol/L Calcium (8.4-10.2) mg/dL Total Bilirubin (0.0-1.0) mg/dL AST (5-37) U/L ALT (0-40) U/L Alkaline Phosphatase (39-117) U/L Ammonia 28 (13-55) umol/L Troponin I High Sens (<3.5-35.0) ng/L B-Natriuretic Peptide 21 (<100) pg/mL Total Protein (6.5-8.0) g/dL Albumin (3.5-5.0) g/dL TSH (0.32-4.0) uIU/mL Urine Color Urine Appearance Urine pH (5.0-8.0) Ur Specific [place] (1.005-1.025) Urine Protein (NEG-TRACE) MG/DL Urine Glucose (UA) (NEG) MG/DL Urine Ketones (NEG) MG/DL Urine Blood (NEG) Urine Nitrite (NEG) Ur Leukocyte Esterase (NEG) Urine RBC (0) /HPF Urine WBC (0-4) /HPF Ur Squamous Epith Cells /LPF Urine Bacteria /LPF Urine Opiates Screen (Not Detect) Urine Fentanyl Screen (Not Detect) Ur Barbiturates Screen (Not Detect) Ur Phencyclidine Scrn (Not Detect) Ur Amphetamines Screen (Not Detect) U Benzodiazepines Scrn (Not Detect) Urine Cocaine Screen (Not Detect) U Marijuana (THC) Screen (Not Detect) Ethyl Alcohol mg/dL COVID-19 (IRON) (Negative) COVID-19 Clin Com 04/06/21 04/06/21 04/06/21 Range/Units 17:09 17:09 20:11 WBC (4.8-10.8) X10*3/uL RBC (4.60-5.80) X10*6/uL Hgb (14.0-18.0) g/dl Hct (42.0-52.0) % MCV (80.0-98.0) fL MCH (27.0-33.0) pg MCHC (31.0-36.0) g/dl RDW (11.0-16.0) % Plt Count (160-400) X10*3/uL MPV (9.4-12.4) fL Immature Gran % (Auto) (0.0-0.4) % Neut % (Auto) (45-73) % Lymph % (Auto) (20-40) % Douglas % (Auto) (2-11) % Eos % (Auto) (0-4) % Baso % (Auto) (0-2) % Lymph # (Auto) (1.2-4.9) X10*3/uL [place] # (Auto) (0.1-1.2) X10*3/uL Eos # (Auto) (0.0-0.4) X10*3/uL Baso # (Auto) (0.0-0.2) X10*3/uL Abs Immat Gran (auto) (0.00-0.03) X10*3/uL Absolute Neuts (auto) (2.0-8.3) x10*3/uL Absolute Nucleated RBC (0.0-0.012) X10*3/uL Nucleated RBC % (auto) (0.0-0.2) /100WBC PT (9.9-13.0) SEC INR (0.9-1.1) Sodium 142 (135-145) mmol/L Potassium 4.5 (3.3-5.1) mmol/L Chloride 112 H (96-108) mmol/L Carbon Dioxide 24 (22-29) mmol/L Anion Gap 11 L (12-20) BUN 27 H (9-16) mg/dL Creatinine 1.80 H (0.5-1.4) mg/dL Estim Creat Clear Calc 30.6 Estimated GFR 36 Random Glucose 117 H (60-115) mg/dL Lactic Acid (0.5-2.0) mmol/L Calcium 8.7 (8.4-10.2) mg/dL Total Bilirubin 0.5 (0.0-1.0) mg/dL AST 43 H (5-37) U/L ALT 53 H (0-40) U/L Alkaline Phosphatase 116 (39-117) U/L Ammonia (13-55) umol/L Troponin I High Sens (<3.5-35.0) ng/L B-Natriuretic Peptide (<100) pg/mL Total Protein 7.0 (6.5-8.0) g/dL Albumin 3.8 (3.5-5.0) g/dL TSH 0.56 (0.32-4.0) uIU/mL Urine Color Urine Appearance Urine pH (5.0-8.0) Ur Specific [place] (1.005-1.025) Urine Protein (NEG-TRACE) MG/DL Urine Glucose (UA) (NEG) MG/DL Urine Ketones (NEG) MG/DL Urine Blood (NEG) Urine Nitrite (NEG) Ur Leukocyte Esterase (NEG) Urine RBC (0) /HPF Urine WBC (0-4) /HPF Ur Squamous Epith Cells /LPF Urine Bacteria /LPF Urine Opiates Screen (Not Detect) Urine Fentanyl Screen (Not Detect) Ur Barbiturates Screen (Not Detect) Ur Phencyclidine Scrn (Not Detect) Ur Amphetamines Screen (Not Detect) U Benzodiazepines Scrn (Not Detect) Urine Cocaine Screen (Not Detect) U Marijuana (THC) Screen (Not Detect) Ethyl Alcohol < 10 mg/dL COVID-19 (IRON) (Negative) COVID-19 Clin Com 04/06/21 04/06/21 04/06/21 Range/Units 20:11 20:17 20:17 WBC (4.8-10.8) X10*3/uL RBC (4.60-5.80) X10*6/uL Hgb (14.0-18.0) g/dl Hct (42.0-52.0) % MCV (80.0-98.0) fL MCH (27.0-33.0) pg MCHC (31.0-36.0) g/dl RDW (11.0-16.0) % Plt Count (160-400) X10*3/uL MPV (9.4-12.4) fL Immature Gran % (Auto) (0.0-0.4) % Neut % (Auto) (45-73) % Lymph % (Auto) (20-40) % [place] % (Auto) (2-11) % Eos % (Auto) (0-4) % Baso % (Auto) (0-2) % Lymph # (Auto) (1.2-4.9) X10*3/uL [place] # (Auto) (0.1-1.2) X10*3/uL Eos # (Auto) (0.0-0.4) X10*3/uL Baso # (Auto) (0.0-0.2) X10*3/uL Abs Immat Gran (auto) (0.00-0.03) X10*3/uL Absolute Neuts (auto) (2.0-8.3) x10*3/uL Absolute Nucleated RBC (0.0-0.012) X10*3/uL Nucleated RBC % (auto) (0.0-0.2) /100WBC PT (9.9-13.0) SEC INR (0.9-1.1) Sodium (135-145) mmol/L Potassium (3.3-5.1) mmol/L Chloride (96-108) mmol/L Carbon Dioxide (22-29) mmol/L Anion Gap (12-20) BUN (9-16) mg/dL Creatinine (0.5-1.4) mg/dL Estim Creat Clear Calc Estimated GFR Random Glucose (60-115) mg/dL Lactic Acid (0.5-2.0) mmol/L Calcium (8.4-10.2) mg/dL Total Bilirubin (0.0-1.0) mg/dL AST (5-37) U/L ALT (0-40) U/L Alkaline Phosphatase (39-117) U/L Ammonia (13-55) umol/L Troponin I High Sens (<3.5-35.0) ng/L B-Natriuretic Peptide (<100) pg/mL Total Protein (6.5-8.0) g/dL Albumin (3.5-5.0) g/dL TSH (0.32-4.0) uIU/mL Urine Color YELLOW Urine Appearance CLEAR Urine pH 6.5 (5.0-8.0) Ur Specific [place] 1.015 (1.005-1.025) Urine Protein NEG (NEG-TRACE) MG/DL Urine Glucose (UA) NEG (NEG) MG/DL Urine Ketones NEG (NEG) MG/DL Urine Blood TRACE (NEG) Urine Nitrite NEG (NEG) Ur Leukocyte Esterase NEG (NEG) Urine RBC 0-2 (0) /HPF Urine WBC 0-2 (0-4) /HPF Ur Squamous Epith Cells TRACE /LPF Urine Bacteria NONE /LPF Urine Opiates Screen Not Detected (Not Detect) Urine Fentanyl Screen Not Detected (Not Detect) Ur Barbiturates Screen Not Detected (Not Detect) Ur Phencyclidine Scrn Not Detected (Not Detect) Ur Amphetamines Screen Not Detected (Not Detect) U Benzodiazepines Scrn Not Detected (Not Detect) Urine Cocaine Screen Not Detected (Not Detect) U Marijuana (THC) Screen Not Detected (Not Detect) Ethyl Alcohol mg/dL COVID-19 (IRON) Negative (Negative) COVID-19 Clin Com See Note 04/07/21 Range/Units 09:19 WBC (4.8-10.8) X10*3/uL RBC (4.60-5.80) X10*6/uL Hgb (14.0-18.0) g/dl Hct (42.0-52.0) % MCV (80.0-98.0) fL MCH (27.0-33.0) pg MCHC (31.0-36.0) g/dl RDW (11.0-16.0) % Plt Count (160-400) X10*3/uL MPV (9.4-12.4) fL Immature Gran % (Auto) (0.0-0.4) % Neut % (Auto) (45-73) % Lymph % (Auto) (20-40) % [place] % (Auto) (2-11) % Eos % (Auto) (0-4) % Baso % (Auto) (0-2) % Lymph # (Auto) (1.2-4.9) X10*3/uL [place] # (Auto) (0.1-1.2) X10*3/uL Eos # (Auto) (0.0-0.4) X10*3/uL Baso # (Auto) (0.0-0.2) X10*3/uL Abs Immat Gran (auto) (0.00-0.03) X10*3/uL Absolute Neuts (auto) (2.0-8.3) x10*3/uL Absolute Nucleated RBC (0.0-0.012) X10*3/uL Nucleated RBC % (auto) (0.0-0.2) /100WBC PT (9.9-13.0) SEC INR (0.9-1.1) Sodium 141 (135-145) mmol/L Potassium 4.8 (3.3-5.1) mmol/L Chloride 111 H (96-108) mmol/L Carbon Dioxide 27 (22-29) mmol/L Anion Gap 8 L (12-20) BUN 21 H (9-16) mg/dL Creatinine 1.51 H (0.5-1.4) mg/dL Estim Creat Clear Calc 36.4 Estimated GFR 45 Random Glucose 94 (60-115) mg/dL Lactic Acid (0.5-2.0) mmol/L Calcium 8.7 (8.4-10.2) mg/dL Total Bilirubin (0.0-1.0) mg/dL AST (5-37) U/L ALT (0-40) U/L Alkaline Phosphatase (39-117) U/L Ammonia (13-55) umol/L Troponin I High Sens (<3.5-35.0) ng/L B-Natriuretic Peptide (<100) pg/mL Total Protein (6.5-8.0) g/dL Albumin (3.5-5.0) g/dL TSH (0.32-4.0) uIU/mL Urine Color Urine Appearance Urine pH (5.0-8.0) Ur Specific [place] (1.005-1.025) Urine Protein (NEG-TRACE) MG/DL Urine Glucose (UA) (NEG) MG/DL Urine Ketones (NEG) MG/DL Urine Blood (NEG) Urine Nitrite (NEG) Ur Leukocyte Esterase (NEG) Urine RBC (0) /HPF Urine WBC (0-4) /HPF Ur Squamous Epith Cells /LPF Urine Bacteria /LPF Urine Opiates Screen (Not Detect) Urine Fentanyl Screen (Not Detect) Ur Barbiturates Screen (Not Detect) Ur Phencyclidine Scrn (Not Detect) Ur Amphetamines Screen (Not Detect) U Benzodiazepines Scrn (Not Detect) Urine Cocaine Screen (Not Detect) U Marijuana (THC) Screen (Not Detect) Ethyl Alcohol mg/dL COVID-19 (IRON) (Negative) COVID-19 Clin Com Discharge Plan Discharge Clinical Impression: Pneumonia, Dementia Patient Disposition: Xfer Other Instructions: Dementia (ED), Pneumonia (ED) Additional Instructions: 1. Resume all home medications. 2. Patient should complete the entire course of antibiotics as prescribed. 3. Patient will need to be re-evaluated for possible medication changes for dementia. Return to the ER for worsening symptoms. Prescriptions: New doxycycline hyclate 100 mg capsule 100 mg PO BID 7 Days Qty: 14 0RF No Action tamsulosin 0.4 mg capsule 2 cap PO DAILY 0RF finasteride 5 mg tablet 1 tab PO DAILY 0RF buspirone 15 mg tablet 1 tab PO TID 0RF memantine 10 mg tablet 1 tab PO BID 0RF quetiapine 50 mg tablet 50 mg PO TID 0RF melatonin 10 mg Tablet 10 mg PO BEDTIME 0RF
[2021-04-08 00:21] VITALS: RESP 14
[2021-04-08 06:18] VITALS: BP 138/78; PULSE 79; RESP 12; TEMP 36.7; O2SAT 99
[2021-04-08] MEDS: busPIRone HCl 5 MG TABLET 15 MG PO ×2 (09:11→16:52)
[2021-04-08] MEDS: Memantine HCl 10 MG TABLET PO (09:11)
[2021-04-08] MEDS: QUEtiapine Fumarate 50 MG TABLET PO ×2 (09:11→16:52)
[2021-04-08] MEDS: Tamsulosin HCL 0.4 MG CAPSULE 0.8 MG PO (09:11)
[2021-04-08] MEDS: Finasteride 5 MG TABLET PO (09:12)
--- NOTE | 2021-04-08 15:32 | P.CNPS_ITS ---
History of Present Illness Date of Service: 04/08/2021 Chief Complaint: AGGRESSIVE PER STAFF @[facility] Reason for Consult: 80M hx dementia, lives in memory unit who declines acceptance until re-eval Requesting physician: Eduarda Dover Discussed with referring provider: No (message sent to CARE team, and covering provider. ) Sources of Information: patient interviewed and chart reviewed HPI Narrative: A chart review displays a recent prescription for cephalexin 500mg, QID, for 7 days, dated 03/28/2021. Patient is an 80-year-old male, presented to ED from [facility] due to aggressive, intrusive behaviors requiring redirection, as per staff at facility. Upon approach this afternoon, patient appears to be resting comfortably in ED bed, with sitter/constant ankle patch molder at bedside. On brief interview, patient appears to be alert, but lacks any orientation to time, place, self, or situation. He was vocal, with tangential speech throughout encounter, with speech lacking any meaningful statements. I spoke with sitter/constant ankle patch molder. She reported that she had been present with patient all day, and that his presentation has not changed. She reported that he was in good behavioral control, and did not display any agressive or agitated behaviors while she was present. During this encounter, patient did not display any type of aggressive or agitated behaviors. He did make eye contact when I was speaking with him. However he was unable to answer any questions coherently. He remained in supine position during encounter. No involuntary movements noted, no tics or tremors noted. Past Psychiatric History: unknown. Patient currently resides in [facility], memory care unit. Medical Evaluation Reviewed: Yes Personal & Social History: Unknown Review of Systems Review of Systems Yes Unobtainable due to mental status [facility] Medical History BPH (benign prostatic hyperplasia) Dementia Family History: Unknown Social History: Unknown history. Patient currently resides in [facility] memory care unit. Substance History: unknown Trauma History: unknown Diagnostics Vital Signs (24Hr): Vital Signs - 24 hr 04/07/21 16:28 04/08/21 00:21 04/08/21 06:18 Temperature 98.1 F 98.1 F Pulse Rate 91 79 Respiratory Rate 16 14 12 Blood Pressure 143/74 H 138/78 Pulse Oximetry 99 99 BMI result Body Mass Index 24.3 Labs Results: 04/06/21 17:09 04/07/21 09:19 Labs: Laboratory Results - last 48 hr 04/06/21 04/06/21 04/06/21 17:09 17:09 17:09 WBC 5.3 RBC 3.19 L Hgb 10.0 L Hct 30.9 L MCV 96.9 MCH 31.3 MCHC 32.4 RDW 13.8 Plt Count 219 MPV 9.8 Immature Gran % (Auto) 1.1 H Neut % (Auto) 61.1 Lymph % (Auto) 21.3 [place] % (Auto) 9.4 Eos % (Auto) 6.0 H Baso % (Auto) 1.1 Lymph # (Auto) 1.1 L [place] # (Auto) 0.5 Eos # (Auto) 0.3 Baso # (Auto) 0.1 Abs Immat Gran (auto) 0.06 H Absolute Neuts (auto) 3.2 Absolute Nucleated RBC 0.000 Nucleated RBC % (auto) 0.0 PT 11.6 INR 1.0 Sodium Potassium Chloride Carbon Dioxide Anion Gap BUN Creatinine Estim Creat Clear Calc Estimated GFR Random Glucose Lactic Acid Calcium Total Bilirubin AST ALT Alkaline Phosphatase Ammonia Troponin I High Sens 3.6 B-Natriuretic Peptide Total Protein Albumin TSH Urine Color Urine Appearance Urine pH Ur Specific [employer] [place] Urine Protein Urine Glucose (UA) Urine Ketones Urine Blood Urine Nitrite Ur Leukocyte Esterase Urine RBC Urine WBC Ur Squamous Epith Cells Urine Bacteria Urine Opiates Screen Urine Fentanyl Screen Ur Barbiturates Screen Ur Phencyclidine Scrn Ur Amphetamines Screen U Benzodiazepines Scrn Urine Cocaine Screen U Marijuana (THC) Screen Ethyl Alcohol COVID-19 (IRON) COVID-19 Clin Com 04/06/21 04/06/21 04/06/21 17:09 17:09 17:09 WBC RBC Hgb Hct MCV MCH MCHC RDW Plt Count MPV Immature Gran % (Auto) Neut % (Auto) Lymph % (Auto) [place] % (Auto) Eos % (Auto) Baso % (Auto) Lymph # (Auto) [place] # (Auto) Eos # (Auto) Baso # (Auto) Abs Immat Gran (auto) Absolute Neuts (auto) Absolute Nucleated RBC Nucleated RBC % (auto) PT INR Sodium Potassium Chloride Carbon Dioxide Anion Gap BUN Creatinine Estim Creat Clear Calc Estimated GFR Random Glucose Lactic Acid 1.0 Calcium Total Bilirubin AST ALT Alkaline Phosphatase Ammonia 28 Troponin I High Sens B-Natriuretic Peptide 21 Total Protein Albumin TSH Urine Color Urine Appearance Urine pH Ur Specific [employer] Urine Protein Urine Glucose (UA) Urine Ketones Urine Blood Urine Nitrite Ur Leukocyte Esterase Urine RBC Urine WBC Ur Squamous Epith Cells Urine Bacteria Urine Opiates Screen Urine Fentanyl Screen Ur Barbiturates Screen Ur Phencyclidine Scrn Ur Amphetamines Screen U Benzodiazepines Scrn Urine Cocaine Screen U Marijuana (THC) Screen Ethyl Alcohol COVID-19 (IRON) COVID-19 [employer] 04/06/21 04/06/21 04/06/21 17:09 17:09 20:11 WBC RBC Hgb Hct MCV MCH MCHC RDW Plt Count MPV Immature Gran % (Auto) Neut % (Auto) Lymph % (Auto) [place] % (Auto) Eos % (Auto) Baso % (Auto) Lymph # (Auto) [place] # (Auto) Eos # (Auto) Baso # (Auto) Abs Immat Gran (auto) Absolute Neuts (auto) Absolute Nucleated RBC Nucleated RBC % (auto) PT INR Sodium 142 Potassium 4.5 Chloride 112 H Carbon Dioxide 24 Anion Gap 11 L BUN 27 H Creatinine 1.80 H Estim Creat Clear Calc 30.6 Estimated GFR 36 Random Glucose 117 H Lactic Acid Calcium 8.7 Total Bilirubin 0.5 AST 43 H ALT 53 H Alkaline Phosphatase 116 Ammonia Troponin I High Sens B-Natriuretic Peptide Total Protein 7.0 Albumin 3.8 TSH 0.56 Urine Color Urine Appearance Urine pH Ur Specific [employer] Urine Protein Urine Glucose (UA) Urine Ketones Urine Blood Urine Nitrite Ur Leukocyte Esterase Urine RBC Urine WBC Ur Squamous Epith Cells Urine Bacteria Urine Opiates Screen Urine Fentanyl Screen Ur Barbiturates Screen Ur Phencyclidine Scrn Ur Amphetamines Screen U Benzodiazepines Scrn Urine Cocaine Screen U Marijuana (THC) Screen Ethyl Alcohol < 10 COVID-19 (IRON) COVID-19 [employer] 04/06/21 04/06/21 04/06/21 20:11 20:17 20:17 WBC RBC Hgb Hct MCV MCH MCHC RDW Plt Count MPV Immature Gran % (Auto) Neut % (Auto) Lymph % (Auto) [place] % (Auto) Eos % (Auto) Baso % (Auto) Lymph # (Auto) [place] # (Auto) Eos # (Auto) Baso # (Auto) Abs Immat Gran (auto) Absolute Neuts (auto) Absolute Nucleated RBC Nucleated RBC % (auto) PT INR Sodium Potassium Chloride Carbon Dioxide Anion Gap BUN Creatinine Estim Creat Clear Calc Estimated GFR Random Glucose Lactic Acid Calcium Total Bilirubin AST ALT Alkaline Phosphatase Ammonia Troponin I High Sens B-Natriuretic Peptide Total Protein Albumin TSH Urine Color YELLOW Urine Appearance CLEAR Urine pH 6.5 [address] [employer] [place] 1.015 Urine Protein NEG Urine Glucose (UA) NEG Urine Ketones NEG Urine Blood TRACE Urine Nitrite NEG Ur Leukocyte Esterase NEG Urine RBC 0-2 Urine WBC 0-2 Ur Squamous Epith Cells TRACE Urine Bacteria NONE Urine Opiates Screen Not Detected Urine Fentanyl Screen Not Detected Ur Barbiturates Screen Not Detected Ur Phencyclidine Scrn Not Detected Ur Amphetamines Screen Not Detected U Benzodiazepines Scrn Not Detected Urine Cocaine Screen Not Detected U Marijuana (THC) Screen Not Detected Ethyl Alcohol COVID-19 (IRON) Negative COVID-19 [employer] See Note 04/07/21 09:19 WBC RBC Hgb Hct MCV MCH MCHC RDW Plt Count MPV Immature Gran % (Auto) Neut % (Auto) Lymph % (Auto) [place] % (Auto) Eos % (Auto) Baso % (Auto) Lymph # (Auto) [place] # (Auto) Eos # (Auto) Baso # (Auto) Abs Immat Gran (auto) Absolute Neuts (auto) Absolute Nucleated RBC Nucleated RBC % (auto) PT INR Sodium 141 Potassium 4.8 Chloride 111 H Carbon Dioxide 27 Anion Gap 8 L BUN 21 H Creatinine 1.51 H Estim Creat Clear Calc 36.4 Estimated GFR 45 Random Glucose 94 Lactic Acid Calcium 8.7 Total Bilirubin AST ALT Alkaline Phosphatase Ammonia Troponin I High Sens B-Natriuretic Peptide Total Protein Albumin TSH Urine Color Urine Appearance Urine pH Ur Specific [employer] Urine Protein Urine Glucose (UA) Urine Ketones Urine Blood Urine Nitrite Ur Leukocyte Esterase Urine RBC Urine WBC Ur Squamous Epith Cells Urine Bacteria Urine Opiates Screen Urine Fentanyl Screen Ur Barbiturates Screen Ur Phencyclidine Scrn Ur Amphetamines Screen U Benzodiazepines Scrn Urine Cocaine Screen U Marijuana (THC) Screen Ethyl Alcohol COVID-19 (IRON) COVID-19 Clin Com Imaging Radiology Impressions: ITS Impressions Chest X-Ray 04/06/21 20:45 IMPRESSION: Normal sized heart. Multifocal opacities as described above, chronic versus acute. Head CT 04/06/21 20:48 IMPRESSION: No acute intracranial pathology. Chest CT 04/06/21 21:54 IMPRESSION: Multiple pleural plaques on the right, many with calcification. Left lower lobe infiltrate consistent with pneumonia. No convincing evidence to suggest CHF. Fleischner guidelines were followed. Mental Status Exam Mental Status Exam Narrative: Well-developed, well-nourished male, in NAD. Appeared to be resting comfortably in bed. Alert but not oriented at this time. Tangential speech, with no coherent, focused replies. He did make eye contact when I spoke with him, but unable to give any meaningful replies. No evidence of any type of AH, VH noted, as patient did not appear to be responding to any type of internal stimuli. Ambulation not observed. No abnormal movements, no tics or tremors observed. Patient Appearance: Appropriate Level of Consciousness: Awake and Alert Patient Behavior: Passive and Good Eye Contact Patient Cognition Impaired: Yes Ability to Follow Directions: Poor Speech Pattern: Rambling Thought Process: Disoriented Thought Content: positive for Disoriented Judgement: Poor Medications Medications Current Medications Buspirone HCl (Buspirone Hcl 5 Mg Tablet) 15 mg PO TID [facility] Last Admin: 04/08/21 09:11 Dose: 15 mg Documented by: Doxycycline Hyclate (Doxycycline Hyclate 100 Mg Tablet) 100 mg PO BID [facility] Stop: 04/13/21 21:01 Last Admin: 04/08/21 09:11 Dose: 100 mg Documented by: Finasteride (Finasteride 5 Mg Tablet) 5 mg PO DAILY [facility] Last Admin: 04/08/21 09:12 Dose: 5 mg Documented by: Melatonin (Melatonin 3 Mg Tablet) 9 mg PO BEDTIME [facility] Last Admin: 04/07/21 20:25 Dose: 9 mg Documented by: Memantine (Memantine Hcl 10 Mg Tablet) 10 mg PO BID [facility] Last Admin: 04/08/21 09:11 Dose: 10 mg Documented by: Quetiapine Fumarate (Quetiapine Fumarate 50 Mg Tablet) 50 mg PO TID [facility] Last Admin: 04/08/21 09:11 Dose: 50 mg Documented by: Tamsulosin HCl (Tamsulosin Hcl 0.4 Mg Capsule) 0.8 mg PO DAILY [facility] Last Admin: 04/08/21 09:11 Dose: 0.8 mg Documented by: Allergies Allergies Allergy/AdvReac Type Severity Reaction Status Date / Time escitalopram [From Lexapro] Allergy Unknown Verified 04/06/21 16:49 Assessment & Plan Assessment & Plan (1) Dementia: Status: Acute Code(s): F03.90 - Unspecified dementia without behavioral disturbance Assessment and Plan: Patient appeared disoriented, rambling speech, nonsensical. As per chart, Patient had recently received 7 days Keflex with script dated 03/28/2021. Patient currently receives BuSpar 15 mg t.i.d., melatonin 10 mg at bedtime, and Seroquel 50 mg t.i.d.. Patient did not display any type of agitation or irritability during encounter, although he was fully demented and unable to provide meaningful answers. It may be possible he had experienced some form of delirium related to infectious process and antibiotics over past month. At this time however he appears to be in good behavioral control, with sitter present. He did not attempt to get out of bed, and appeared comfortable. Plan Patient is not displaying any type of symptoms of delirium. He is not displaying any type of agitation or aggressive/intrusive behaviors. He also does not appear to be responding to any type of internal stimuli. He was smiling during brief encounter, although appears fully disoriented and confused. RECOMMENDATIONS: Consider adding quetiapine 25-50 mg as a p.r.n. dose during day. Would also recommend adding trazodone 12.5 mg at 14:00 to help prevent any sundowning symptoms. He does not appear to require inpatient psychiatric hospitalization at this time, and should be discharged home to LTC faciltiy when medically cleared. I have shared this with Erin Chun on CARES team, as well as YENI Lin, via secure messaging system. Thank you for this consultation. If you have any questions or concerns, please do not hesitate to contact Psychiatry Service. I spent minutes with the patient and/or on the patient floor today, greater than?50% of which was spent counseling/coordinating care. Informed Consent: does not understand
[2021-04-08] MEDS: Melatonin 3 MG TABLET 9 MG PO (23:45)
[2021-04-09] MEDS: QUEtiapine Fumarate 50 MG TABLET PO ×4 (00:18→22:15)
[2021-04-09] MEDS: Memantine HCl 10 MG TABLET PO ×3 (00:19→22:15)
[2021-04-09] MEDS: busPIRone HCl 5 MG TABLET 15 MG PO ×4 (00:22→22:14)
--- NOTE | 2021-04-09 03:12 | PC.NURSE ---
ASSUMING CARE FOR THIS PATIENT FROM [facility], PATIENT RESTING COMFORTABLY IN BED NO DISTRESS NOTED. PATIENT NOT MAKING ATTEMPT TO GET OUT OF BED. LOOKING AT CHART AND PATIENT CLEARED BY PSYCH. MEDICATIONS WERE ADJUSTED BY THEM. RECOMMENDATION FOR REVENUE ENFORCEMENT AGENT CARE. THERE IS NO ORDER FOR THE MANAGEMENT OR PT EVEALUATION, MAKING PROVIDER DR. EDWARDS AWARE.
[2021-04-09 04:23] VITALS: BP 147/80; PULSE 77; RESP 14; TEMP 36.6; O2SAT 99
[2021-04-09] MEDS: Tamsulosin HCL 0.4 MG CAPSULE 0.8 MG PO (10:11)
[2021-04-09] MEDS: Finasteride 5 MG TABLET PO (10:11)
--- NOTE | 2021-04-09 10:20 | MHC.CM.ED ---
Addendum entered by Sunshine Hawkins 04/09/21 11:10: Received return telephone call from Natalia at [facility]. T/W attempted to explain patient was cleared by psych and PRN Seroquel was ordered. Natalia refusing to accept patient back and stated It's not safe for the other patients with him here. T/W attempted to explain that [facility] is his residence and it is expected he would return back because he doesn't meet inpatient psych level of care and hasn't exhibited any aggressive behavior while here. Natalia stated she is upset and will speak to their psych nurse. Natalia requested ABA Lujan call her. This information was provided to ABA Lujan. Carolina Oakes, director of case management is aware of this conversation. Continue to monitor for d/c needs. Original Note: Received case management consult overnight. Patient came to er on from [facility] due to aggressive behavior at [facility]. Patient was cleared by psych. PRN Seroquel added to medication list. T/W attempted to speak to Natalia at [facility] via telephone at [phone]. Left message requesting return telephone call.Continue to monitor for d/c needs.
[2021-04-09 10:32] VITALS: BP 118/71; PULSE 81; RESP 12; O2SAT 98
--- NOTE | 2021-04-09 13:21 | PM.EVENT ---
Event Note Date of Service: 04/09/21 Event Note: This provider was asked to speak with a material requirements planning manager, Natalia, at patient is long-term care facility. Phone number [phone], extension [phone]. Discussed psychiatric evaluation completed yesterday. She is requesting [facility] psychiatric admission. It was explained that he has not demonstrated any type of agitation, combative, intrusive behaviors while here. He does appear to have advanced dementia. This was relayed to case management team, as well as psychiatry service.
[2021-04-09] MEDS: traZODone HCL 25 MG HALFTAB 12.5 MG PO (16:24)
[2021-04-09] MEDS: Melatonin 3 MG TABLET 9 MG PO (22:14)
[2021-04-09] MEDS: QUEtiapine Fumarate 25 MG TABLET PO (22:15)
[2021-04-09 22:17] VITALS: BP 130/82; PULSE 100; RESP 16; O2SAT 95
[2021-04-10 06:58] VITALS: RESP 16
--- NOTE | 2021-04-10 07:00 | PC.NURSE ---
received care at 3:30am pt sleeping for the remainder of the evening. no sign of distress.
[2021-04-10] MEDS: traZODone HCL 25 MG HALFTAB 12.5 MG PO (09:04)
[2021-04-10] MEDS: QUEtiapine Fumarate 50 MG TABLET PO ×3 (09:04→21:00)
[2021-04-10] MEDS: busPIRone HCl 5 MG TABLET 15 MG PO ×3 (09:04→21:00)
[2021-04-10] MEDS: Memantine HCl 10 MG TABLET PO ×2 (09:04→21:00)
[2021-04-10] MEDS: Tamsulosin HCL 0.4 MG CAPSULE 0.8 MG PO (09:04)
[2021-04-10] MEDS: Finasteride 5 MG TABLET PO (09:05)
[2021-04-10 09:43] LABS: Anion Gap 11 (12-20); Blood Urea Nitrogen 29 mg/dL (9-16); Calcium 9.7 mg/dL (8.4-10.2); Carbon Dioxide 27 mmol/L (22-29); Chloride 108 mmol/L (96-108); Creatinine Clr Calc Pharmacy 29.4; Estimated Glomerular Filt Rate 35; Glucose Random 102 mg/dL (60-115); Magnesium 2.1 mg/dL (1.6-2.6); Potassium 4.5 mmol/L (3.3-5.1); Sodium 141 mmol/L (135-145)
[2021-04-10 11:36] VITALS: BP 124/65; PULSE 82; RESP 14; O2SAT 100
--- NOTE | 2021-04-10 12:20 | MHC.CM.ED ---
Addendum entered by Sunshine Hawkins 04/10/21 14:21: [facility] does not have a bed to offer. Referral broadcasted within 20 miles of patient's residence. Original Note: Ricco remains in ER. Carolina Oakes spoke with patient's son. Patient has been to [facility] in the past. Home is requesting referral to [facility] for 2 week respite. Referral made via [employer]. Patient received 3 Pfizer vaccines. Continue to monitor for d/c needs.
[2021-04-10 14:29] VITALS: BP 139/82; PULSE 96; RESP 16; O2SAT 98
[2021-04-10] MEDS: Melatonin 3 MG TABLET 9 MG PO (21:00)
[2021-04-10 22:00] VITALS: BP 133/72; PULSE 72; RESP 16
--- NOTE | 2021-04-11 02:37 | PC.NURSE ---
pt resting in hospital bed.. pt wakes to voice, respirations easy, n/l. skin w/d. will continue to monitor pt. pt awaiting for case mgt in the morning.
--- NOTE | 2021-04-11 03:07 | PC.NURSE ---
pt sleeping, wakes to voice, respirations easy, n/l. skin w/d. will continue to monitor pt.
--- NOTE | 2021-04-11 06:00 | PC.NURSE ---
PT CLEANED UP.
[2021-04-11 06:59] VITALS: BP 135/73; PULSE 84; RESP 15
[2021-04-11] MEDS: traZODone HCL 25 MG HALFTAB 12.5 MG PO (09:29)
[2021-04-11] MEDS: busPIRone HCl 5 MG TABLET 15 MG PO ×3 (09:29→21:01)
[2021-04-11] MEDS: Memantine HCl 10 MG TABLET PO ×2 (09:29→20:57)
[2021-04-11] MEDS: QUEtiapine Fumarate 50 MG TABLET PO ×3 (09:30→20:56)
[2021-04-11] MEDS: Finasteride 5 MG TABLET PO (09:30)
[2021-04-11] MEDS: Tamsulosin HCL 0.4 MG CAPSULE 0.8 MG PO (09:30)
--- NOTE | 2021-04-11 14:57 | PC.NURSE ---
Ambulatory to bathroom, assist of one. generally weak per tech. calm/cooperative.
[2021-04-11] MEDS: Melatonin 3 MG TABLET 9 MG PO (20:57)
--- NOTE | 2021-04-11 21:30 | PC.NURSE ---
pt medicated for nighttime meds. pt eating pudding with crushed meds w/o difficulty. pt tolerated well.
[2021-04-11 23:35] VITALS: BP 124/72
[2021-04-12 08:19] VITALS: BP 116/63; PULSE 90; RESP 16; TEMP 36.8; O2SAT 96
[2021-04-12] MEDS: traZODone HCL 25 MG HALFTAB 12.5 MG PO (08:23)
[2021-04-12] MEDS: Tamsulosin HCL 0.4 MG CAPSULE 0.8 MG PO (08:23)
[2021-04-12] MEDS: Memantine HCl 10 MG TABLET PO ×2 (08:23→20:25)
[2021-04-12] MEDS: Finasteride 5 MG TABLET PO (08:23)
[2021-04-12] MEDS: QUEtiapine Fumarate 50 MG TABLET PO ×3 (08:23→20:25)
[2021-04-12] MEDS: busPIRone HCl 5 MG TABLET 15 MG PO ×3 (08:23→20:24)
[2021-04-12 17:48] VITALS: RESP 16
[2021-04-12] MEDS: Melatonin 3 MG TABLET 9 MG PO (20:24)
[2021-04-13 00:49] VITALS: BP 119/63; PULSE 85; RESP 12; TEMP 37; O2SAT 97
--- NOTE | 2021-04-13 03:00 | PC.NURSE ---
I assumed care of this pt at 1900. Since that time the pt has been resting in a hospital bed, awake, alert, and calm. He has taken his PM PO meds crushed in apple sauce without difficulty. he has no complaints. Respirations non-labored. Will continue to monitor Home.
[2021-04-13 07:30] VITALS: BP 106/61; PULSE 77; RESP 16; O2SAT 96
--- NOTE | 2021-04-13 08:01 | PC.NURSE ---
pt refused am meds
--- NOTE | 2021-04-13 12:39 | MHC.CM.ED ---
Patient remains in ER. Per son, Home, agreeable to 2 week respite pay at a [facility] facility so patient can return to [facility] after that. No bed offers made yet. Clinical updates sent via [employer]. Continue to monitor for d/c needs.
--- NOTE | 2021-04-13 13:33 | PC.NURSE ---
pt stood up and out of bed, stating something about needing to get coffee. pt did ambulate to the bathroom with an assist and a one person stanby. pt urinated in the toilet and returned to bed.
--- NOTE | 2021-04-13 14:34 | PC.NURSE ---
pt standing beside his bed, staff in room to assist. pt began punching and kicking at staff, making finger guns at staff and stating you're
[2021-04-13] MEDS: QUEtiapine Fumarate 50 MG TABLET PO (14:42)
[2021-04-13] MEDS: busPIRone HCl 5 MG TABLET 15 MG PO (14:42)
[2021-04-13 20:39] VITALS: BP 119/73
--- NOTE | 2021-04-13 22:40 | PC.NURSE ---
made several attempted to administer pt PM medications with pudding, ice cream and apple sauce. pt refusing each time. pt swung at t/w at one point and stated not now
[2021-04-14 08:18] VITALS: BP 114/59; RESP 18
[2021-04-14] MEDS: traZODone HCL 25 MG HALFTAB 12.5 MG PO (09:46)
[2021-04-14] MEDS: busPIRone HCl 5 MG TABLET 15 MG PO ×3 (09:46→21:44)
[2021-04-14] MEDS: QUEtiapine Fumarate 50 MG TABLET PO ×3 (09:46→21:44)
[2021-04-14] MEDS: Memantine HCl 10 MG TABLET PO ×2 (09:47→21:44)
[2021-04-14] MEDS: Finasteride 5 MG TABLET PO (09:47)
[2021-04-14] MEDS: Tamsulosin HCL 0.4 MG CAPSULE 0.8 MG PO (09:47)
--- NOTE | 2021-04-14 10:00 | PC.NURSE ---
pt took medication willingly in apple sauce- crushed
--- NOTE | 2021-04-14 10:03 | PC.NURSE ---
spoke with cm, plan is to find respite care for two weeks at [facility]- [facility] will not reaccept pt for two weeks d/t behaviors
--- NOTE | 2021-04-14 14:09 | MHC.CM.ED ---
Received notification that [facility] able to offer a bed on 04/15. PASRR Level 2 will need to be obtained. PASRR Level 1 completed and faxed to [facility]. Left voicemail for sonHome via telephone at [phone]. Natalia at [facility] aware of potential discharge. Continue to monitor for d/c needs.
--- NOTE | 2021-04-14 15:26 | MHC.CM.ED ---
Patient will need respite at short term rehab in order to make sure his behavior's have completely stabilized and he will be able to safely return to his assisted living facility. At this time, the assisted living facility does not feel he can safely return. He does not qualify for inpatient psych or hospital level of care.
[2021-04-14 16:01] VITALS: BP 95/54; PULSE 107; RESP 14; O2SAT 97
[2021-04-14] MEDS: Melatonin 3 MG TABLET 9 MG PO (21:44)
[2021-04-14 22:00] VITALS: PULSE 80; RESP 20; O2SAT 99
--- NOTE | 2021-04-15 07:30 | PC.NURSE ---
pt sleeping, respirations even and unlabored.
--- NOTE | 2021-04-15 07:45 | PC.NURSE ---
pt refusing to eat his breakfast, does not want eggs, this rn ordered the pt pancakes instead, pt ate 100% of his breakfast
[2021-04-15] MEDS: QUEtiapine Fumarate 50 MG TABLET PO ×3 (09:36→20:37)
[2021-04-15] MEDS: Tamsulosin HCL 0.4 MG CAPSULE 0.8 MG PO (09:36)
[2021-04-15] MEDS: Memantine HCl 10 MG TABLET PO ×2 (09:36→20:37)
[2021-04-15] MEDS: busPIRone HCl 5 MG TABLET 15 MG PO ×3 (09:36→20:36)
[2021-04-15] MEDS: Finasteride 5 MG TABLET PO (09:37)
--- NOTE | 2021-04-15 15:49 | MHC.CM.ED ---
Patient accepted at [facility] [place]. Patient's son, Home, will be at [facility] at 530 to provide a $6300 check. BLS transport has been arranged for 5pm. [facility] with chart. Patient, son Home, and Dr Tolentino aware. Continue to monitor for d/c needs.
[2021-04-15] MEDS: traZODone HCL 25 MG HALFTAB 12.5 MG PO (16:57)
[2021-04-15] MEDS: QUEtiapine Fumarate 25 MG TABLET PO (16:58)
[2021-04-15] MEDS: Melatonin 3 MG TABLET 9 MG PO (20:36)
[2021-04-15 20:43] VITALS: BP 139/57; PULSE 78; RESP 16
[2021-04-15 20:54] LABS: COVID-19 Test Negative (Negative)
--- NOTE | 2021-04-16 00:08 | PC.NURSE ---
Patient at confused at baseline. Give patient pills crushed with either applesauce or pudding in one teaspoon. (pudding is his favorite) Patient is a full feed can feed himself some things but eats better when fed. Patient denies any pain. Patient was getting a little agitated at the beginning of shift was able to get his medications in him and he took a nap. Awaiting insurance approval for [facility]. Will continue to monitor.
[2021-04-16 04:28] VITALS: BP 129/61; PULSE 91; RESP 14; O2SAT 100
--- NOTE | 2021-04-16 08:17 | PC.NURSE ---
pt up and out of bed with assist to the bathroom. pt had a BM and urinated independently in the toilet
[2021-04-16] MEDS: Finasteride 5 MG TABLET PO (08:46)
[2021-04-16] MEDS: traZODone HCL 25 MG HALFTAB 12.5 MG PO (08:46)
[2021-04-16] MEDS: QUEtiapine Fumarate 50 MG TABLET PO (08:46)
[2021-04-16] MEDS: Tamsulosin HCL 0.4 MG CAPSULE 0.8 MG PO (08:46)
[2021-04-16] MEDS: busPIRone HCl 5 MG TABLET 15 MG PO (08:46)
[2021-04-16] MEDS: Memantine HCl 10 MG TABLET PO (08:46)
[2021-04-16 12:01] VITALS: BP 139/69; PULSE 97; RESP 14
--- NOTE | 2021-04-16 12:05 | MHC.CM.ED ---
Finally confirmed patient received Pfizer 04/06/20, 04/27/20 & 11/28/20. Patient will leave for [facility] at 1pm.
--- NOTE | 2021-04-16 12:50 | PC.NURSE ---
this nurse took report from henrietta maza, the patient was discharged with ems to [facility], report called
== END 2021-04-16 12:51 | disposition skilled nursing facility (03) ==
PROVIDERS: Emergency Medicine; Internal Medicine; Nurse Practitioner Family; Emergency Provider Emergency Medicine; PCP Internal Medicine
DX: F03.91 Unspecified dementia, unspecified severity, with behavioral disturbance (principal); R45.6 Violent behavior; J18.9 Pneumonia, unspecified organism; Z20.822 Contact with and (suspected) exposure to COVID-19; Z79.899 Other long term (current) drug therapy
CPT/HCPCS: 36415; 70450; 71045; 71250; 80048; 80053; 80307; 81001; 82077; 82140; 83605; 83735; 83880; 84443; 84484; 85025; 85610; 87040; 87147; 87205; 87635; 93005; 96361; 96365; 96372; 96375; 96376; 97162; 99285; J2060